=== PATIENT | female | born 1950 | race Caucasian/White ===

== ENCOUNTER 2021-06-04 06:10 | Observation (INO) | payer MEDICARE ==
[2021-06-04] MEDS ORDERED: Sodium Chloride 0.9% 1000 ML 1,000 ML IV STA ×2 (06:41→08:11)
--- NOTE | 2021-06-04 06:48 | ERPHSYRPT ---
- History of Present Illness Time Seen by Provider: 06/04/21 06:20 Source: patient Exam Limitations: no limitations Physician History: Patient is a 70-year-old female presents to our ED via EMS for evaluation of generalized weakness diarrhea. Patient states she awoke this morning. Patient had some abdominal cramping. Patient had ongoing diarrhea. Abdominal cramping has since resolved. Patient slipped on her stool and fell. No syncope. No BHT or LOC. No associated chest pain or shortness of breath. No numbness tingling or weakness. The fall was not associated with any neuro or cardiovascular symptomology. Patient was on the floor for approximately 25 minutes. Patient states she feels too weak to get up. Patient denies injuries related to her fall. Cervical spine cleared clinically. She has no pain at this time. Patient is concerned with her weakness and diarrhea. Symptoms are mild to moderate in intensity. No specific worsening or improving factors. Patient voices no other complaints or concerns at this time. Timing/Duration: today Severity: moderate Modifying Factors: Improves With: nothing Associated Symptoms: nausea, abdominal pain (Abdominal cramping. However this has resolved since diarrhea occurred.), No vomiting, No shortness of breath, No cough, No chest pain, No fever, No syncope, No seizure Allergies/Adverse Reactions: Penicillins Allergy (Verified 04/24/21 13:42) Swelling of Tongue and Lips Home Medications: Clopidogrel Bisulfate 75 mg [PLAVIX 75 MG Tablet] 75 mg PO DAILY 02/12/12 [History] Desvenlafaxine Succinate [Pristiq] 50 mg PO DAILY 02/12/12 [History] Furosemide 40 mg [Lasix 40 MG] 40 mg PO DAILY 02/12/12 [History] Magnesium Oxide [Magnesium] 400 mg PO DAILY 02/12/12 [History] Omeprazole 40 mg PO DAILY 02/12/12 [History] Potassium Chloride 10 Meq Tab* [Klor Con 10 MEQ] 10 meq PO DAILY 02/12/12 [History] lisinopriL [Lisinopril] 10 mg PO DAILY 02/12/12 [History] nadoloL [Nadolol] 40 mg PO DAILY 02/12/12 [History] Requip 1 mg PO DAILY 04/01/12 [History] Hx Tetanus, Diphtheria Vaccination/Date Given: Yes Hx Influenza Vaccination/Date Given: Yes Hx Pneumococcal Vaccination/Date Given: Yes - Review of Systems Constitutional: No Symptoms, No Fever, No Chills Eyes: No Symptoms Ears, Nose, & Throat: No Symptoms Respiratory: No Symptoms, No Cough, No Dyspnea Cardiac: No Symptoms, No Chest Pain, No Edema, No Syncope Abdominal/Gastrointestinal: No Symptoms, No Abdominal Pain, No Nausea, No Vomiting, No Diarrhea Genitourinary Symptoms: No Symptoms, No Dysuria Musculoskeletal: No Symptoms, No Back Pain, No Neck Pain Skin: No Symptoms, No Rash Neurological: No Symptoms, No Dizziness, No Focal Weakness, No Sensory Changes Psychological: No Symptoms Endocrine: No Symptoms Hematologic/Lymphatic: No Symptoms Immunological/Allergic: No Symptoms All Other Systems: Reviewed and Negative - Past Medical History Pertinent Past Medical History: Yes Neurological History: Migraines ENT History: No Pertinent History Cardiac History: Coronary Artery Disease, Hypertension Respiratory History: No Pertinent History Endocrine Medical History: No Pertinent History Musculoskeletal History: No Pertinent History GI Medical History: GERD History: Renal Disease Psycho-Social History: No Pertinent History Female Reproductive Disorders: No Pertinent History Other Medical History: UTI,RLS - Past Surgical History Past Surgical History: Yes Neuro Surgical History: No Pertinent History Cardiac: CABG Respiratory: No Pertinent History Gastrointestinal: No Pertinent History Genitourinary: No Pertinent History Musculoskeletal: No Pertinent History Female Surgical History: No Pertinent History Other Surgical History: colonoscopy - Social History Smoking Status: Never smoker Exposure to second hand smoke: No Drug Use: none Patient Lives Alone: Yes - Nursing Vital Signs Nursing Vital Signs: Initial Vital Signs Temperature 96.0 F 06/04/21 06:12 Pulse Rate 56 L 06/04/21 06:12 Respiratory Rate 18 06/04/21 06:12 Blood Pressure 77/48 06/04/21 06:12 O2 Sat by Pulse Oximetry 94 L 06/04/21 06:12 Pain Scale Pain Intensity 0 - Physical Exam General Appearance: no apparent distress, alert, other (Follow odor due to stool incontinence. Patient has stool on her arms close and legs.) Eye Exam: PERRL/EOMI, eyes nml inspection Ears, Nose, Throat Exam: normal ENT inspection, TMs normal, pharynx normal, moist mucous membranes Neck Exam: normal inspection, non-tender, supple, full range of motion Respiratory Exam: normal breath sounds, lungs clear, airway intact, No respiratory distress Cardiovascular Exam: regular rate/rhythm, normal heart sounds, normal peripheral pulses Gastrointestinal/Abdomen Exam: soft, normal bowel sounds, No tenderness, No mass Back Exam: normal inspection, normal range of motion, No CVA tenderness, No vertebral tenderness Extremity Exam: normal inspection, normal range of motion, pelvis stable Neurologic Exam: alert, oriented x 3, cooperative, normal mood/affect, sensation nml, No motor deficits Skin Exam: normal color, warm, dry, No rash Lymphatic Exam: No adenopathy SpO2 Interpretation: normal SpO2: 94 O2 Delivery: Room Air - Course Nursing assessment & vital signs reviewed: Yes Ordered Tests: Active Orders 24 hr Category Date Time Status Rug Touch Up Painter STAT Care 06/04/21 06:42 Active EKG-ER Only STAT Care 06/04/21 06:48 Active IV Insertion STAT Care 06/04/21 06:41 Active Pulse Oximetry (ED) STAT Care 06/04/21 06:41 Active CBC W DIFF Stat Lab 06/04/21 06:41 Ordered CK-Creatinine Phosphokinase Stat Lab 06/04/21 06:41 Ordered CMP Stat Lab 06/04/21 06:41 Ordered TROPONIN Q3H Lab 06/04/21 07:00 Ordered TROPONIN Q3H Lab 06/04/21 10:00 Ordered TROPONIN Q3H Lab 06/04/21 13:00 Ordered TROPONIN Q3H Lab 06/04/21 16:00 Ordered TROPONIN Q3H Lab 06/04/21 19:00 Ordered UA W/RFX UR CULTURE Stat Lab 06/04/21 06:42 Ordered Medication Summary Generic Name Dose Route Start Last Admin Trade Name Freq PRN Reason Stop Dose Admin Sodium Chloride 1,000 mls @ 999 mls/hr 06/04/21 06:41 Sodium Chloride 0.9% 1000 Ml IV 06/04/21 07:41 .Q1H1M STA - Progress Progress Note: Work-up pending. Patient endorsed to at approximately 7am. Dr. Floyd will review work-up and make final disposition. 06/04/21 07:03 - Departure Departure Disposition: Home Clinical Impression: Fall, Generalized weakness, Stool incontinence Condition: Stable Critical Care Time: No Referrals: KAYLEIGH SALDANA MD [Primary Care Provider] - Follow up/PCP as directed
[2021-06-04] MEDS ORDERED: Sodium Chloride 0.9% 1000 ML 1,000 ML ONE ×2 (07:12→09:00)
[2021-06-04 07:35] LABS: Hematocrit 42.4 % (35-47); Hemoglobin 13.4 gm/dl (12.0-16.0); Mean Corpuscular Hemoglobin 29.4 pg (26-32); Mean Corpuscular Hgb Concent. 31.6 g/dl (32-36); Platelet Count 271 K/mm3 (150-450); Red Blood Count 4.56 M/mm3 (4.1-5.4); Red Cell Distribution Width 14.6 % (11.5-14.0); White Blood Count 17.1 K/mm3 (4.0-10.5)
[2021-06-04 07:40] LABS: ALBUMIN 4.5 g/dL (3.5-5.0); ANION GAP 16.2 MEQ/L (5-15); BILIRUBIN,TOTAL 0.9 mg/dL (0.2-1.3); Calcium 10.5 mg/dL (8.4-10.2); Creatinine 1 1.72 mg/dL (0.52-1.04); EST GLOMERULAR FILTRATION RATE 31.2 ML/MIN; Potassium 4.6 mmol/L (3.5-5.1); Total Protein 8.1 g/dL (6.3-8.2)
[2021-06-04 08:11] LABS: Lymphocytes 10 % (24-44); Monocyte 4 % (0.0-12.0); Neutrophils 86 % (36.0-66.0); Platelet Estimate NORMAL (NORMAL); Total Cells Counted 100
[2021-06-04 09:00] LABS: Appearance CLOUDY (CLEAR); Bacteria RARE /HPF (NEGATIVE); Bilirubin NEGATIVE (NEGATIVE); Blood NEGATIVE Ery/ul (0-5); Epithelial Cells RARE /HPF (FEW); Glucose NEGATIVE (NEGATIVE); Ketones NEGATIVE (NEGATIVE); Leukocyte Esterase NEGATIVE (NEGATIVE); Mucus SLIGHT /HPF (NEGATIVE); Nitrite NEGATIVE (NEGATIVE); Protein,Urine Dip 100 (Negative); Specific Gravity 1.011 (1.005-1.025); Urobilinogen 2 mg/dL (0-1)
--- NOTE | 2021-06-04 09:20 | XRAY ---
Indication: Vomiting and diarrhea. Multiple contiguous axial images obtained through the abdomen and pelvis without contrast. Comparison: None Lung bases demonstrates minimal dependent atelectasis. No infiltrate or effusion. Heart not enlarged. Noncontrasted stomach and bowel loops appear nonobstructed. Normal appendix. Mild fluid distended distal small bowel loops and right hemicolon with fluid leveling either ileus versus enterocolitis. Distal transverse and descending colon demonstrates mild circumferential wall thickening with mild pericolonic stranding favoring colitis. No free fluid/air. Cirrhotic appearing liver. 8 mm gallstone. Remaining liver, gallbladder, pancreas, spleen, adrenal glands, kidneys, ureters, bladder, and uterus are unremarkable for noncontrast exam. Moderate scattered aortoiliac calcifications without AAA. Osseous structures intact with osteopenia and moderate degenerative changes throughout the thoracolumbar spine. Incidental T9-L1 Schmorl nodes. Impression: 1. Fluid distended distal small bowel loops and right hemicolon with fluid leveling, ileus versus enterocolitis. 2. Mild hemicolon colitis without complications. 3. Incidental cirrhotic liver, subcentimeter gallstone, and chronic bony findings.
[2021-06-04] MEDS ORDERED: Zofran 4 MG/2 ML VIAL IV PRN (11:06)
[2021-06-04] MEDS ORDERED: Levofloxacin 500MG/100ML D5W 500 MG/100 ML BAG IV STA (11:27)
[2021-06-04] MEDS ORDERED: Levofloxacin 500MG/100ML D5W 500 MG/100 ML BAG IV ONE (11:32)
[2021-06-04] MEDS: Sodium Chloride 0.9% 1000 ML 1,000 ML IV SCH ×2 (11:33→20:29)
[2021-06-04 12:43] LABS: INFLUENZA A NEGATIVE (NEGATIVE); INFLUENZA B NEGATIVE (NEGATIVE); RESPIRATORY SYNCTIAL VIRUS NEGATIVE (Negative); SARS-CoV-2 Xpert Express POSITIVE (NEGATIVE)
[2021-06-04] MEDS ORDERED: PROTONIX 40 MG IV IV SCH (16:00)
[2021-06-04] MEDS ORDERED: Ativan 2 MG/1 ML VIAL IV PRN (17:05)
[2021-06-04] MEDS ORDERED: IMODIUM 2 MG PO PRN (17:07)
[2021-06-04] MEDS ORDERED: MEDICATION INTERVENTION PO SCH (17:30)
[2021-06-04] MEDS: PRISTIQ ER PO SCH (18:05)
[2021-06-04] MEDS: Wellbutrin XL 150 MG PO SCH (18:05)
[2021-06-04] MEDS: PROZAC 10 MG PO SCH (18:06)
[2021-06-04] MEDS: Risperdal 1 MG PO SCH (18:07)
[2021-06-04] MEDS: PLAVIX 75 MG Tablet PO SCH (18:12)
[2021-06-04] MEDS: Zestril 10 MG PO SCH (18:13)
[2021-06-04] MEDS: ZOCOR 20MG PO SCH (18:13)
[2021-06-04] MEDS: MAG-OX 400 PO SCH (18:14)
[2021-06-04] MEDS: Klor Con 10 MEQ PO SCH (18:14)
[2021-06-04] MEDS: Heparin 5000 UNITS/0.5 ML (HIGH RISK MED) SQ SCH (21:34)
[2021-06-04] MEDS: ZYLOPRIM 100 MG PO SCH (21:35)
[2021-06-05] MEDS: Ativan 1 MG PO PRN (02:52)
[2021-06-05] MEDS: Sodium Chloride 0.9% 1000 ML 1,000 ML IV SCH ×2 (05:02→18:38)
[2021-06-05 05:53] LABS: Absolute Neutrophil Ct (ANC) 2.85 (1.4-6.9); Basophil (Absolute #) 0.02 (0-0.4); Eosinophil % 2.1 % (0.00-5.0); Eosinophil (Absolute #) 0.11 (0-0.5); Hematocrit 29.1 % (35-47); Hemoglobin 9.1 gm/dl (12.0-16.0); Lymphocyte (Absolute #) 1.69 (1.0-4.6); Lymphocytes % 32.6 % (24.0-44.0); Mean Cell Volume 94.8 fl (78-100); Mean Corpuscular Hemoglobin 29.6 pg (26-32); Mean Corpuscular Hgb Concent. 31.3 g/dl (32-36); Mean Platelet Volume 11.5 fl (7.5-11.0); Monocyte (Absolute #) 0.51 (0.0-1.3); Monocytes % 9.8 % (0.0-12.0); Neutrophil % 55.1 % (36.0-66.0); Platelet Count 111 K/mm3 (150-450); Red Blood Count 3.07 M/mm3 (4.1-5.4); Red Cell Distribution Width 14.7 % (11.5-14.0); White Blood Count 5.2 K/mm3 (4.0-10.5)
[2021-06-05 06:46] LABS: ALBUMIN 2.8 g/dL (3.5-5.0); ANION GAP 9.4 MEQ/L (5-15); BILIRUBIN,TOTAL 0.5 mg/dL (0.2-1.3); Calcium 8.6 mg/dL (8.4-10.2); Creatinine 1 1.23 mg/dL (0.52-1.04); EST GLOMERULAR FILTRATION RATE 45.9 ML/MIN; Total Protein 5.4 g/dL (6.3-8.2)
[2021-06-05] MEDS: Klor Con 10 MEQ PO SCH (09:47)
[2021-06-05] MEDS: PLAVIX 75 MG Tablet PO SCH (09:47)
[2021-06-05] MEDS: ZOCOR 20MG PO SCH (09:47)
[2021-06-05] MEDS: Protonix 40MG Tablet PO SCH (09:48)
[2021-06-05] MEDS: Levofloxacin 250MG Tablet PO SCH (09:48)
[2021-06-05] MEDS: PROZAC 10 MG PO SCH (09:48)
[2021-06-05] MEDS: MAG-OX 400 PO SCH (09:48)
[2021-06-05] MEDS: PRISTIQ ER PO SCH (09:49)
[2021-06-05] MEDS ORDERED: NON-FORMULARY ITEM (Rosuvastatin Calcium [Rosuvastatin Calcium] 20 MG Tablet) PO SCH (10:00)
[2021-06-05] MEDS ORDERED: NON-FORMULARY ITEM (Risperidone [Risperdal] 0.5 MG Tablet) PO SCH (10:00)
[2021-06-05] MEDS ORDERED: NON-FORMULARY ITEM (Omeprazole [Omeprazole] 40 MG Capsule.Dr) PO SCH (10:00)
[2021-06-05] MEDS ORDERED: NADOLOL 40 MG PO SCH (10:00)
[2021-06-05] MEDS ORDERED: MAGNESIUM OXIDE 400 MG PO SCH (10:00)
--- NOTE | 2021-06-05 10:04 | HP ---
CHIEF COMPLAINT: Abdominal pain, profuse diarrhea, confusion, hurting all over. HISTORY OF PRESENT ILLNESS: The patient is a 70-year-old white female who I think lives with her ex-. She had several days of feeling bad. She had severe diarrhea, severe epigastric and left lower quadrant pain. She said she has never had spells quite like that before. She came into the emergency room and tested positive for COVID and a CT that showed diverticulitis and her white count was elevated to 15,000. She had abdominal cramping that did wake her up. She does not know of anyone she has been with who has COVID. She does not get out much, she stated. By the time she got to her room the pain had gone away. However, she had a large amount of diarrhea which probably relieved the pressure. MEDICATIONS: Plavix 75 q.d., Pristiq 50 q.d., furosemide 40 q.d., Mag-Ox 400 q.d., Prilosec 40 q.d., KCL 20 q.d., lisinopril 10 q.d., Nadolol 40 q.d., Requip 1 mg q.d. Question about whether the patient takes Risperdal for hallucinations also. It is not on the list but the son called that in. Allopurinol 100 b.i.d., Wellbutrin 150 b.i.d., Prozac 10 q.d., omeprazole 20 q.d., risperidone 0.25 q.d., rosuvastatin 20 q.d. I think we will discontinue the Nadolol due to her bradycardia that occurred last night. ALLERGIES: PENICILLIN. PAST MEDICAL HISTORY: Migraines. The patient has visual and auditory hallucinations she states been going on for many years. She usually just tells them to go away. Apparently she has not seen a psychiatrist secondary to COVID. The son said it is getting worse. She freely talked about it and said it has been there for many years and she can control it by telling herself they are not there. Probably she has well controlled schizophrenia. PAST SURGICAL HISTORY: Pacemaker. Coronary artery bypass some time ago. She had a colonoscope within ten years. REVIEW OF SYSTEMS: HEENT: No problems hearing or seeing. CHEST: No shortness of breath. No cough. Nonsmoker. CVS: No exertional chest pain or palpitations. ABDOMEN: Pain is epigastric and left lower quadrant. Diarrhea which was profuse in the emergency room which seemed to relieve the pain. No history of diverticulitis. ENDOCRINE: No problems with diabetes or hypertension. : CT scan showed some cirrhotic changes of the liver. Denies drinking. Will look into that. SOCIAL HISTORY: She states she has never smoked. PHYSICAL EXAMINATION: The patient is alert, orientated and in no distress. She is very pleasant this afternoon when I saw her. VITAL SIGNS: Temperature 96F, pulse 66, respirations 18, blood pressure quite low at 80/70 and it did come up. O2 saturation was 94% on room air. Pain intensity was 0. GENERAL: The patient is alert, orientated in no severe distress. HEENT: Pupils equal and reactive to light. NECK: Supple without adenopathy. CHEST: Clear. CVS: No murmurs or gallops. ABDOMEN: Normal bowel sounds. Minimal tenderness now. BACK: No tenderness at all. EXTREMITIES: Legs no edema, moves all extremities fine. She states she ambulates okay. LAB DATA AND TESTS: Her x-rays CT showed fluid-distended distal small bowel loops, right hemicolon with fluid leveling, ileus versus enterocolitis, mild hemicolon colitis without complications, incidental cirrhotic liver, subcentimeter gallstone and chronic bony findings. The distal and descending colon had mild circumferential wall thickening with mild pericolonic stranding favoring colitis. Chest x-ray heart not enlarged, minimal atelectasis. White count was 15, hemoglobin was normal. EKG was okay. IMPRESSION: 1) The patient had some kind of acute colitis. It could related to her COVID. It could definitely be colitis with x-ray findings and elevated white count. 2) Apparently she has schizophrenia. I do not know if she takes Risperdal now or not but it came up so I assumes she does. From what she states, she is able to control it by telling the images to go away and she has had it for a long time. Her son left a note saying it seemed somewhat better. 3) She had a positive history for coronary artery disease and a bypass. Nonsmoker. 4) She has COVID that seems to be mild. PLAN: The patient will be treated with some Levaquin since her white count was elevated. IV fluids will be gradually increased. She has no severe COVID symptoms so will observe that and not use any specific medications. I think she had the vaccine. For her schizophrenia she is trying to see her psychiatrist. She does take risperidone 0.25 q.d. for that and that seems to be working fairly well. I think we will discontinue the Nadolol due to her bradycardia that occurred last night.
[2021-06-05] MEDS: Zestril 10 MG PO SCH (10:08)
[2021-06-05] MEDS: Wellbutrin XL 150 MG PO SCH (10:08)
[2021-06-05] MEDS: Risperdal 1 MG PO SCH (10:08)
[2021-06-05] MEDS: ZYLOPRIM 100 MG PO SCH ×2 (10:08→21:21)
[2021-06-05] MEDS: Heparin 5000 UNITS/0.5 ML (HIGH RISK MED) SQ SCH ×2 (10:28→21:20)
--- NOTE | 2021-06-05 10:30 | PROG NOTE ---
DATE: 06/05/2021 MEDICAL PROBLEMS: 1) COVID. 2) Schizophrenia. 3) Hypotension. HISTORY: The patient is improved. She is not on oxygen. Her diarrhea stopped and she feels better. Schizophrenia controlled. The patient states she is not having hallucinations now. She usually controls them by ignoring them. It is a chronic problem. She should follow up with her psychiatrist in a few weeks if possible. Her home doctor may be able to increase her Risperdal. The patient did have some hypotension the last night and did get a fluid bolus. She has some bradycardia at times so perhaps will discontinue her Nadolol. PHYSICAL EXAMINATION: ABDOMEN: Soft. Normal bowel sounds. CHEST: Clear. IMPRESSION: Overall improved. PLAN: Increase diet. Discontinue Nadolol. Home tomorrow hopefully.
[2021-06-06] MEDS: Sodium Chloride 0.9% 1000 ML 1,000 ML IV SCH ×2 (04:27→14:08)
[2021-06-06 05:49] LABS: Hematocrit 30.4 % (35-47); Hemoglobin 9.5 gm/dl (12.0-16.0); Mean Corpuscular Hemoglobin 29.7 pg (26-32); Mean Corpuscular Hgb Concent. 31.3 g/dl (32-36); Mean Platelet Volume 11.6 fl (7.5-11.0); Red Cell Distribution Width 14.7 % (11.5-14.0); White Blood Count 4.3 K/mm3 (4.0-10.5)
[2021-06-06 07:09] LABS: Platelet Count 98 K/mm3 (150-450)
[2021-06-06] MEDS: Klor Con 10 MEQ PO SCH (09:04)
[2021-06-06] MEDS: ZOCOR 20MG PO SCH (09:04)
[2021-06-06] MEDS: Zestril 10 MG PO SCH (09:05)
[2021-06-06] MEDS: Wellbutrin XL 150 MG PO SCH (09:05)
[2021-06-06] MEDS: ZYLOPRIM 100 MG PO SCH ×2 (09:05→21:44)
[2021-06-06] MEDS: Heparin 5000 UNITS/0.5 ML (HIGH RISK MED) SQ SCH ×2 (09:05→21:44)
[2021-06-06] MEDS: Levofloxacin 250MG Tablet PO SCH (09:05)
[2021-06-06] MEDS: Protonix 40MG Tablet PO SCH (09:05)
[2021-06-06] MEDS: PRISTIQ ER PO SCH (09:05)
[2021-06-06] MEDS: PLAVIX 75 MG Tablet PO SCH (09:05)
[2021-06-06] MEDS: MAG-OX 400 PO SCH (09:05)
[2021-06-06] MEDS: PROZAC 10 MG PO SCH (09:05)
[2021-06-06 09:09] LABS: HBsAg Screen Negative (Negative); Hep A Ab, IgM Negative (Negative); Hep B Core Ab, IgM Negative (Negative)
[2021-06-06] MEDS: Risperdal 1 MG PO SCH (09:19)
[2021-06-06 13:30] LABS: Hep C Virus Ab <0.1 s/co ratio (0.0-0.9)
[2021-06-07] MEDS: Sodium Chloride 0.9% 1000 ML 1,000 ML IV SCH ×2 (00:02→09:38)
[2021-06-07 06:18] LABS: Hematocrit 29.7 % (35-47); Hemoglobin 9.4 gm/dl (12.0-16.0); Mean Corpuscular Hemoglobin 29.7 pg (26-32); Mean Corpuscular Hgb Concent. 31.6 g/dl (32-36); Mean Platelet Volume 11.2 fl (7.5-11.0); Platelet Count 94 K/mm3 (150-450); Red Blood Count 3.16 M/mm3 (4.1-5.4); Red Cell Distribution Width 14.7 % (11.5-14.0); White Blood Count 4.1 K/mm3 (4.0-10.5)
[2021-06-07] MEDS: Klor Con 10 MEQ PO SCH (09:24)
[2021-06-07] MEDS: Heparin 5000 UNITS/0.5 ML (HIGH RISK MED) SQ SCH ×2 (09:24→22:34)
[2021-06-07] MEDS: PLAVIX 75 MG Tablet PO SCH (09:25)
[2021-06-07] MEDS: Levofloxacin 250MG Tablet PO SCH (09:25)
[2021-06-07] MEDS: Protonix 40MG Tablet PO SCH (09:26)
[2021-06-07] MEDS: PROZAC 10 MG PO SCH (09:26)
[2021-06-07] MEDS: PRISTIQ ER PO SCH (09:26)
[2021-06-07] MEDS: Wellbutrin XL 150 MG PO SCH (09:27)
[2021-06-07] MEDS: ZOCOR 20MG PO SCH (09:27)
[2021-06-07] MEDS: Zestril 10 MG PO SCH (09:27)
[2021-06-07] MEDS: Risperdal 1 MG PO SCH (09:27)
[2021-06-07] MEDS: ZYLOPRIM 100 MG PO SCH ×2 (09:28→22:34)
[2021-06-07] MEDS: MAG-OX 400 PO SCH (09:29)
[2021-06-07 15:39] LABS: Slide Review YES
[2021-06-08] MEDS ORDERED: TYLENOL 325 MG ONE (03:11)
[2021-06-08] MEDS: TYLENOL 325 MG PO PRN (03:14)
[2021-06-08] MEDS: Sodium Chloride 0.9% 1000 ML 1,000 ML IV SCH (03:48)
[2021-06-08 06:44] LABS: Hematocrit 27.9 % (35-47); Hemoglobin 8.9 gm/dl (12.0-16.0); Mean Cell Volume 93.3 fl (78-100); Mean Corpuscular Hemoglobin 29.8 pg (26-32); Mean Corpuscular Hgb Concent. 31.9 g/dl (32-36); Mean Platelet Volume 10.3 fl (7.5-11.0); Platelet Count 99 K/mm3 (150-450); Red Blood Count 2.99 M/mm3 (4.1-5.4); Red Cell Distribution Width 14.7 % (11.5-14.0); White Blood Count 4.1 K/mm3 (4.0-10.5)
[2021-06-08] MEDS: Klor Con 10 MEQ PO SCH (09:49)
[2021-06-08] MEDS: Heparin 5000 UNITS/0.5 ML (HIGH RISK MED) SQ SCH ×2 (09:49→21:48)
[2021-06-08] MEDS: PRISTIQ ER PO SCH (09:50)
[2021-06-08] MEDS: Levofloxacin 250MG Tablet PO SCH (09:50)
[2021-06-08] MEDS: Protonix 40MG Tablet PO SCH (09:50)
[2021-06-08] MEDS: PLAVIX 75 MG Tablet PO SCH (09:50)
[2021-06-08] MEDS: MAG-OX 400 PO SCH (09:50)
[2021-06-08] MEDS: Risperdal 1 MG PO SCH (09:51)
[2021-06-08] MEDS: PROZAC 10 MG PO SCH (09:51)
[2021-06-08] MEDS: ZYLOPRIM 100 MG PO SCH ×2 (09:51→21:49)
[2021-06-08] MEDS: Wellbutrin XL 150 MG PO SCH (09:51)
[2021-06-08] MEDS: Zestril 10 MG PO SCH (09:51)
[2021-06-08] MEDS: ZOCOR 20MG PO SCH (09:51)
[2021-06-08 12:57] LABS: Slide Review YES
[2021-06-08] MEDS: FEOSOL 325 MG PO SCH (14:09)
[2021-06-09] MEDS: Protonix 40MG Tablet PO SCH (08:58)
[2021-06-09] MEDS: Klor Con 10 MEQ PO SCH (08:58)
[2021-06-09] MEDS: FEOSOL 325 MG PO SCH (08:58)
[2021-06-09] MEDS: ZOCOR 20MG PO SCH (08:58)
[2021-06-09] MEDS: Levofloxacin 250MG Tablet PO SCH (08:59)
[2021-06-09] MEDS: PLAVIX 75 MG Tablet PO SCH (08:59)
[2021-06-09] MEDS: PRISTIQ ER PO SCH (08:59)
[2021-06-09] MEDS: Wellbutrin XL 150 MG PO SCH (08:59)
[2021-06-09] MEDS: ZYLOPRIM 100 MG PO SCH ×2 (08:59→21:57)
[2021-06-09] MEDS: PROZAC 10 MG PO SCH (08:59)
[2021-06-09] MEDS: Zestril 10 MG PO SCH (08:59)
[2021-06-09] MEDS: MAG-OX 400 PO SCH (08:59)
[2021-06-09] MEDS: Risperdal 1 MG PO SCH (09:00)
[2021-06-09] MEDS: Heparin 5000 UNITS/0.5 ML (HIGH RISK MED) SQ SCH ×2 (09:00→21:57)
[2021-06-09 09:10] LABS: Absolute Neutrophil Ct (ANC) 2.81 (1.4-6.9); Basophil (Absolute #) 0.03 (0-0.4); Eosinophil % 2.5 % (0.00-5.0); Eosinophil (Absolute #) 0.12 (0-0.5); Hematocrit 28.9 % (35-47); Hemoglobin 9.2 gm/dl (12.0-16.0); Lymphocyte (Absolute #) 1.49 (1.0-4.6); Lymphocytes % 31.5 % (24.0-44.0); Mean Cell Volume 93.8 fl (78-100); Mean Corpuscular Hemoglobin 29.9 pg (26-32); Mean Corpuscular Hgb Concent. 31.8 g/dl (32-36); Mean Platelet Volume 10.3 fl (7.5-11.0); Monocyte (Absolute #) 0.28 (0.0-1.3); Monocytes % 5.9 % (0.0-12.0); Neutrophil % 59.5 % (36.0-66.0); Platelet Count 101 K/mm3 (150-450); Red Blood Count 3.08 M/mm3 (4.1-5.4); Red Cell Distribution Width 14.9 % (11.5-14.0); White Blood Count 4.7 K/mm3 (4.0-10.5)
[2021-06-09] MEDS: TYLENOL 325 MG PO PRN (09:12)
[2021-06-09 09:19] LABS: ALBUMIN 3.1 g/dL (3.5-5.0); ALKALINE PHOSPHATASE 79 U/L (38-126); ANION GAP 8.5 MEQ/L (5-15); BLOOD UREA NITROGEN 9 mg/dL (7-17); CHLORIDE 111 mmol/L (98-107); Carbon Dioxide 25 mmol/L (22-30); Creatinine 1 0.85 mg/dL (0.52-1.04); EST GLOMERULAR FILTRATION RATE > 60.0 ML/MIN; Glucose 87 mg/dL (74-106); Potassium 3.5 mmol/L (3.5-5.1); SGOT/AST 42 U/L (14-36); SGPT/ALT 22 U/L (0-35); SODIUM 141 mmol/L (137-145); Total Protein 5.8 g/dL (6.3-8.2)
--- NOTE | 2021-06-09 14:08 | PROG NOTE ---
DATE: 06/08/2021 CHIEF COMPLAINT: COVID, schizophrenia. HISTORY: The patient has been here for four days. She has no cough, fever or chills. The diarrhea went away. She has no abdominal pain. She is eating well. White count is down. We did also increase her Risperdal which is 0.25 to 0.5 and she states she is not really having any vivid hallucinations. She states she has had schizophrenia for many years and she has gotten so she knows hallucinations from the nonhallucinations, and will not pay attention to things she knows are obviously hallucinations. She has been calm, pleasant and polite. She wants to get home, kind of understands the ins and outs. I told her the family wanted to look at placement. I told her that quite frankly it is very hard to get placement for MARVIN second of all from mental health problems. She said she knew that. PHYSICAL EXAMINATION: CHEST: Clear. CVS: Heart sounds normal. IMPRESSION: The patient is much improved from the COVID. Her white count today is 4.1, hemoglobin low at 8.1 probably secondary to iron deficiency, small microcytic. Her strength came back. PLAN: I think we can heparin lock her, some iron pills. I did increase her Risperdal to 1 mg q.d. She presently thinks she has a baby at home but then she realizes that it is not true so mental health smiley she is not in super bad shape. I feel she will do well at home. I do not totally know what happened, I do know she was admitted to the [facility] apparently a month ago as hallucinations got bad.
--- NOTE | 2021-06-09 14:57 | XRAY ---
Indication: [facility] placement. Positive Covid 19. Comparison: October 13, 2017. Portable apical lordotic chest less inflated and remains clear. Heart not enlarged again with CABG. Bony thorax intact again with mild osteopenia and degenerative changes. Impression: Continued nonacute chest with chronic features.
[2021-06-10] MEDS: Ativan 1 MG PO PRN (08:03)
[2021-06-10] MEDS: FEOSOL 325 MG PO SCH (08:03)
[2021-06-10] MEDS: ZOCOR 20MG PO SCH (08:03)
[2021-06-10] MEDS: Heparin 5000 UNITS/0.5 ML (HIGH RISK MED) SQ SCH ×2 (08:03→21:25)
[2021-06-10] MEDS: PLAVIX 75 MG Tablet PO SCH (08:03)
[2021-06-10] MEDS: Klor Con 10 MEQ PO SCH (08:03)
[2021-06-10] MEDS: Zestril 10 MG PO SCH (08:03)
[2021-06-10] MEDS: Wellbutrin XL 150 MG PO SCH (08:04)
[2021-06-10] MEDS: Protonix 40MG Tablet PO SCH (08:04)
[2021-06-10] MEDS: ZYLOPRIM 100 MG PO SCH ×2 (08:04→21:25)
[2021-06-10] MEDS: PRISTIQ ER PO SCH (08:04)
[2021-06-10] MEDS: Levofloxacin 250MG Tablet PO SCH (08:04)
[2021-06-10] MEDS: Risperdal 1 MG PO SCH (08:04)
[2021-06-10] MEDS: PROZAC 10 MG PO SCH (08:04)
[2021-06-10] MEDS: MAG-OX 400 PO SCH (08:04)
--- NOTE | 2021-06-10 12:56 | PCM.NOTE ---
Date and Time: 06/10/21 1254 Subjective Assessment: doing better. - Review of Systems Constitutional: No Fever, No Chills Eyes: No Symptoms Ears, Nose, & Throat: No Symptoms Respiratory: No Cough, No Short Of Breath Cardiac: No Chest Pain, No Edema, No Syncope Abdominal/Gastrointestinal: No Abdominal Pain, No Nausea, No Vomiting, No Diarrhea Genitourinary Symptoms: No Dysuria Musculoskeletal: No Back Pain, No Neck Pain Skin: No Rash Neurological: No Dizziness, No Focal Weakness, No Sensory Changes Psychological: No Symptoms Endocrine: No Symptoms Hematologic/Lymphatic: No Symptoms Immunological/Allergic: No Symptoms Objective Exam General Appearance: no apparent distress, alert Neurologic Exam: alert, oriented x 3, cooperative, normal mood/affect, nml cerebellar function, sensation nml, No motor deficits Skin Exam: normal color, warm, dry Eye Exam: PERRL, EOMI, eyes nml inspection Ears, Nose, Throat Exam: normal ENT inspection, pharynx normal, moist mucous membranes Neck Exam: normal inspection, non-tender, supple, full range of motion Respiratory Exam: normal breath sounds, lungs clear, No respiratory distress Cardiovascular Exam: regular rate/rhythm, normal heart sounds Gastrointestinal/Abdomen Exam: soft, No tenderness, No mass Extremity Exam: normal inspection, normal range of motion Back Exam: normal inspection, normal range of motion, No CVA tenderness, No vertebral tenderness Pelvic Exam: deferred Rectal Exam: deferred OBJECTIVE DATA Vital Signs: Vital Signs - 24 hr Temp Pulse Resp BP Pulse Ox 06/10/21 12:00 82 06/10/21 11:57 17 06/10/21 10:00 86 16 93 L 06/10/21 07:57 16 06/10/21 06:39 98.1 F 89 16 128/50 94 L 06/10/21 05:34 87 18 95 06/10/21 05:21 16 06/10/21 04:00 96.8 F 99 H 16 152/7 96 06/10/21 02:00 77 16 92 L 06/10/21 00:00 16 06/09/21 23:53 96.4 F 90 16 151/74 93 L 06/09/21 22:00 21 06/09/21 21:47 73 21 93 L 06/09/21 20:00 16 06/09/21 19:51 96.4 F 83 16 134/53 97 06/09/21 18:00 85 16 97 06/09/21 17:50 18 06/09/21 16:00 97.5 F 77 18 109/49 97 06/09/21 14:00 71 16 97 Pain Assessment - Last Documented Pain Intensity 0 Pain Scale Used 0-10 Pain Scale Intake and Output: Intake & Output 06/08/21 06/09/21 06/10/21 06/11/21 11:59 11:59 11:59 11:59 Intake Total 3459 1872 660 120 Balance 3459 1872 660 120 Radiology Exams: Radiology Procedures Category Date Time Status CHEST 1 VIEW (PORTABLE) Urgent Exams 06/09/21 14:21 Completed Multi-Disciplinary Progress Notes: Multi-Disciplinary Progress Notes 06/10/21 09:13 Case Management Note by Belén Kilgore PHONED [facility] WITH SIGNATURE, THEY BEGAN PRE-CERTIFICATION YESTERDAY AFTERNOON, LONG INSURANCE ACCEPTS, THEY WILL ACCEPT PATIENT DEENA. Initialized on 06/10/21 09:13 - END OF NOTE 06/09/21 16:20 Physical Therapy Note by [email or web address] PT. REPORTS FEELING BETTER. ORIENTED TO SELF AND MONTH. THOUGHT SHE WAS IN THE RETIREMENT AND THAT THE YEAR WAS 2002. REPORTS C/O PN; NO LOOSE STOOLS. PT. REPORTED SHE DID NOT NEED TO USE RESTROOM WHEN ASKED. PT. AGREEABLE TO P.T. IN BED UPON P.T. ARRIVAL TO ROOM. O2 SATS 94%+ ON RA. PT. PERFORMED SUPINE LE EX'S OF QUAD SETS, SLRS, HEEL SLIDES, SUPINE HIP ABD, WELL SEATED LAQS AND MARCHES. TOLERATED EXERCISES WELL WITHOUT DYSPNEA. FOLLOWED CUES WELL. SUPINE TO SIT PERFORMED SBA-MOD I W/ HOB ELEVATED. SIT TO STAND SBA-MOD I. NO C/O DIZZINESS W/ POSITION CHANGE. PT. AMBULATED 150' (LAPS IN ROOM D/T COVID ISOLATION) W/ RW SBA-MOD I. PT. ABLE TO NEGOTIATE TURN WITHOUT DIFFICULTY. PT. DID HAVE A HALLUCINATION OF SEEING "3 PIGS" ON THE LINEN CART WHILE WALKING. O2 SATS 93-94% AFTER WALK. PT. RESTED X ~ 2 MINS THEN PERFORMED STANDING SQUATS AND CALF RAISES AT WALKER X 10 REPS. PT. TOLERATED RX WELL. PROGRESSING WELL W/ INDEPENDENCE W/ FUNCTIONAL MOBILITY AND ACTIVITY TOLERANCE. WILL CONT. P.T. 5X/WK TO ADDRESS FUNCTIONAL DEFICITS AND INCREASE TOLERANCE TO ACTIVITY. Initialized on 06/09/21 16:20 - END OF NOTE 06/09/21 14:30 Case Management Note by Belén Kilgore FAXED REFERRAL TO [facility] IN [place], THEY ARE CURRENTLY ACCEPTING COVID PATIENTS AND STATE THEY ARE IN NETWORK WITH HER INSURANCE. Initialized on 06/09/21 14:30 - END OF NOTE Assessment/Plan (1) SARS-CoV-2 positive Current Visit: Yes Status: Acute Code(s): U07.1 - COVID-19 (2) Generalized weakness Current Visit: Yes Status: Acute Assessment & Plan: plan to transfer to rehab ([facility]) Code(s): R53.1 - WEAKNESS
--- NOTE | 2021-06-11 09:29 | DS ---
ADMISSION DIAGNOSES: 1) COVID. 2) Syncopal spell. 3) Generalized weakness. 4) Incontinence of stool. 5) Probably schizophrenia. 6) Dementia. DISCHARGE DIAGNOSES: 1) COVID. 2) SYNCOPAL SPELL. 3) GENERALIZED WEAKNESS. 4) INCONTINENCE OF STOOL. 5) PROBABLY SCHIZOPHRENIA. 6) DEMENTIA. HISTORY: The patient was brought into the emergency room when she had a fall and could not get up and seemed to be a little more confused. At the time I saw her she was in no distress. She was pleasant. She acted like she recognized me and I may have known her from the past. She has known dementia. She states for years she has had hallucinations. She had been diagnosed in the past with schizophrenia, she thinks. She states she just ignores them most of the time which is a reasonable treatment for a lot of schizophrenics. Apparently she was living at home and her son has been living with her but he has severe health problems and has not been able to help much lately. She is . She has a home health care agency involved also. The family is alleging that she is just confused because she has urinary tract infection and that is usually a misconception of course. They think she could go to a correction to get urinary tract infection taken care of. I do not know of any correction that does rehab for urinary tract infections and also we will have a hard time placing her in a nursing facility if she has COVID and also if she has diagnosis of schizophrenia or other problems like that. PHYSICAL EXAMINATION: The patient is alert, orientated to place and time, knows who I am this morning. CHEST: Clear. CVS: Heart sounds regular. ABDOMEN: Soft. No masses. EXTREMITIES: Moves all okay. LAB DATA AND TESTS: White count was 5.2, hemoglobin was 9.1, PLT count was 111,000. MEDICATIONS: Home medicines were: Wellbutrin 150 q.d., Plavix 75 q.d., desvenlafaxine succinate 50 q.d., Prozac 10 q.d., heparin subcu b.i.d. She had been started on some Levaquin 250 q.d. for urinary tract infection, lisinopril 10 q.d., Lomotil PRN, Protonix 40, KCL 10 q.d., Risperdal 0.5 was stopped on 07/04/2020. ALLERGIES: PENICILLIN. SOCIAL HISTORY: She is . is not involved although he did put his two cents in and said she is mentally not capable and needs placed in a nursing facility. HOSPITAL COURSE: The patient did very well after she was admitted. She ate well, had no more passing out spells or lightheaded spells. Her oxygen levels were normal without oxygen. Her white count stayed low normal. I wonder if she got the COVID vaccine. There is no particular history about that I guess. Initially, we thought she had some colitis. CT showed some distended small bowel loops, right hemicolon with fluid leveling suggestive of enteric colitis and she had a large bowel movement in the emergency room all over herself. She has incidental cirrhotic liver with hepatitis panel negative. Certainly she had some GI problems which may have been from the COVID or from an ileus and she was placed on antibiotics for that although her white count was low. It is just consistent with her COVID. She is eating, no diarrhea and she can be sent to a nursing facility or her home situation.
[2021-06-11] MEDS: FEOSOL 325 MG PO SCH (09:50)
[2021-06-11] MEDS: PLAVIX 75 MG Tablet PO SCH (09:50)
[2021-06-11] MEDS: ZYLOPRIM 100 MG PO SCH ×2 (09:50→21:23)
[2021-06-11] MEDS: ZOCOR 20MG PO SCH (09:50)
[2021-06-11] MEDS: Zestril 10 MG PO SCH (09:50)
[2021-06-11] MEDS: Protonix 40MG Tablet PO SCH (09:50)
[2021-06-11] MEDS: Klor Con 10 MEQ PO SCH (09:50)
[2021-06-11] MEDS: MAG-OX 400 PO SCH (09:51)
[2021-06-11] MEDS: PROZAC 10 MG PO SCH (09:51)
[2021-06-11] MEDS: Risperdal 1 MG PO SCH (09:51)
[2021-06-11] MEDS: Wellbutrin XL 150 MG PO SCH (09:51)
[2021-06-11] MEDS: PRISTIQ ER PO SCH (09:51)
[2021-06-11] MEDS: Levofloxacin 250MG Tablet PO SCH (09:51)
[2021-06-11] MEDS: Heparin 5000 UNITS/0.5 ML (HIGH RISK MED) SQ SCH (13:11)
--- NOTE | 2021-06-11 13:54 | PCM.NOTE ---
Date and Time: 06/11/21 5267 Subjective Assessment: doing better - Review of Systems Constitutional: No Fever, No Chills Eyes: No Symptoms Ears, Nose, & Throat: No Symptoms Respiratory: No Cough, No Short Of Breath Cardiac: No Chest Pain, No Edema, No Syncope Abdominal/Gastrointestinal: No Abdominal Pain, No Nausea, No Vomiting, No Diarrhea Genitourinary Symptoms: No Dysuria Musculoskeletal: No Back Pain, No Neck Pain Skin: No Rash Neurological: No Dizziness, No Focal Weakness, No Sensory Changes Psychological: No Symptoms Endocrine: No Symptoms Hematologic/Lymphatic: No Symptoms Immunological/Allergic: No Symptoms Objective Exam General Appearance: no apparent distress, alert Neurologic Exam: alert, oriented x 3, cooperative, normal mood/affect, nml cerebellar function, sensation nml, No motor deficits Skin Exam: normal color, warm, dry Eye Exam: PERRL, EOMI, eyes nml inspection Ears, Nose, Throat Exam: normal ENT inspection, pharynx normal, moist mucous membranes Neck Exam: normal inspection, non-tender, supple, full range of motion Respiratory Exam: normal breath sounds, lungs clear, No respiratory distress Cardiovascular Exam: regular rate/rhythm, normal heart sounds Gastrointestinal/Abdomen Exam: soft, No tenderness, No mass Extremity Exam: normal inspection, normal range of motion Back Exam: normal inspection, normal range of motion, No CVA tenderness, No vertebral tenderness Pelvic Exam: deferred Rectal Exam: deferred OBJECTIVE DATA Vital Signs: Vital Signs - 24 hr Temp Pulse Resp BP Pulse Ox 06/11/21 12:00 84 16 93 L 06/11/21 10:00 88 16 98 06/11/21 08:00 90 16 99 06/11/21 06:00 85 94 L 06/11/21 04:00 35.9 F 84 18 146/65 94 L 06/11/21 02:00 81 17 97 06/11/21 00:00 96.4 F 95 H 17 157/81 95 06/10/21 22:00 76 96 06/10/21 20:00 96.4 F 88 17 133/71 98 06/10/21 17:55 79 17 96 06/10/21 15:48 82 17 108/68 96 Pain Assessment - Last Documented Pain Intensity 0 Pain Scale Used 0-10 Pain Scale Intake and Output: Intake & Output 06/09/21 06/10/21 06/11/2122 11:59 11:59 11:59 11:59 Intake Total 1872 660 840 Balance 1872 660 840 Radiology Exams: Radiology Procedures Category Date Time Status CHEST 1 VIEW (PORTABLE) Urgent Exams 06/09/21 14:21 Completed Multi-Disciplinary Progress Notes: Multi-Disciplinary Progress Notes 06/11/21 12:54 Nutrition Note by Nidhi Tai Note pt on day 7 obs. waiting for facility placement. House regular diet con't with good po intake. GRIS Priest Initialized on 06/11/21 12:54 - END OF NOTE 06/11/21 12:38 Case Management Note by Roselia Maza S/W KECIA- SHE CONTINUES TO WANT PATIENT TO GO REHAB AT [facility] IF INSURANCE APPROVES. IF NOT- SHE WOULD BE INTERESTED IN HHC BUT HHC HAS BEEN DENIED BEFORE WELL. Initialized on 06/11/21 12:38 - END OF NOTE 06/11/21 09:21 Case Management Note by Roselia Maza REACHED OUT TO [facility] TO CHECK ON REFERRAL- LM Initialized on 06/11/21 09:21 - END OF NOTE 06/11/21 07:27 Pharmacy Note by Renzo Trejo Today is day 8 of Levaquin. Please review if this needs continued. Initialized on 06/11/21 07:27 - END OF NOTE 06/10/21 17:20 Physical Therapy Note by [id number] PT. REPORTS NO C/O PN. AGREEABLE TO P.T. AWAITING INS PRE-CERT FOR SNF TO CONT. REHAB. PT. CONT. TO MAKE SOME REMARKS THAT ARE OUT OF CONTEXTOR DON'T MAKE SENS BUT USUALLY IS ABLE TO RETURN TO P.T. TASK. PERFORMED SEATED LE EX'S X 10 REPS - ANKLE PUMPS, HEEL SLIDES, SLRS, SPINE HIP ABD, LAQS, AND MARCHES. O2 SATS 94-96% ON RA. PT. PERFORMED SIT TO STAND - MOD I. AMBULATED 150' (LAPS IN ROOM) W/ RW AND SBA. O2 SATS 95% AFTER WALK ON RA. NO INSTABILITY NOTED W/ GAIT . PT. DOES EXHIBIT SLOW PACE AND DECREASED STRIDE LENGTH. PT. DID MENTION SOME L KNEE INSTABILITY @ HOME AT TIMES AND REPORTS THAT WHEN SHE HAS FALLEN IT IS ON L LE. CONT. P.T. 5X/WK UNTIL D/C TO PREP FOR REHAB STAY WHEN INSURANCE AUTH IS GRANTED. Initialized on 06/10/21 17:20 - END OF NOTE Assessment/Plan (1) SARS-CoV-2 positive Current Visit: Yes Status: Acute Assessment & Plan: Last Vital Signs Temp 35.9 F 06/11/21 04:00 Pulse 84 06/11/21 12:00 Resp 16 06/11/21 12:00 BP 146/65 06/11/21 04:00 Pulse Ox 93 L 06/11/21 12:00 Allergies Penicillins Allergy (Verified 04/24/21 13:42) Swelling of Tongue and Lips Active Medications Acetaminophen (Acetaminophen 325 Mg Tablet) 650 mg PO Q4H PRN PRN PRN Reason: PAIN AND/OR FEVER Stop: 07/08/21 03:12 Last Admin: 06/09/21 09:12 Dose: 650 mg Allopurinol (Allopurinol 100 Mg Tablet) 100 mg PO BID KATERINA Stop: 07/04/21 21:59 Last Admin: 06/11/21 09:50 Dose: 100 mg Bupropion HCl (Bupropion Hcl 150 Mg Tablet Xl) 150 mg PO DAILY AKTERINA Stop: 07/04/21 17:59 Last Admin: 06/11/21 09:51 Dose: 150 mg Clopidogrel Bisulfate (Clopidogrel Bisulfate 75 Mg Tablet) 75 mg PO DAILY KATERINA Stop: 07/04/21 17:59 Last Admin: 06/11/21 09:50 Dose: 75 mg Desvenlafaxine Succinate (Desvenlafaxine Succinate 50 Mg Tab.Er.24h) 50 mg PO DAILY KATERINA Stop: 07/04/21 17:59 Last Admin: 06/11/21 09:51 Dose: 50 mg Ferrous Sulfate (Ferrous Sulfate 325 Mg Tablet) 325 mg PO DAILY KATERINA Stop: 07/08/21 12:59 Last Admin: 06/11/21 09:50 Dose: 325 mg Fluoxetine HCl (Fluoxetine Hcl 10 Mg Tablet) 10 mg PO DAILY KATERINA Stop: 07/04/21 17:59 Last Admin: 06/11/21 09:51 Dose: 10 mg Lisinopril (Lisinopril 10 Mg Tablet) 10 mg PO DAILY KATERINA Stop: 07/04/21 17:59 Last Admin: 06/11/21 09:50 Dose: 10 mg Loperamide HCl (Loperamide Hcl 2 Mg Capsule) 2 mg PO Q4H PRN PRN Stop: 07/04/21 17:06 Lorazepam (Lorazepam 1 Mg Tablet) 1 mg PO Q4H PRN PRN PRN Reason: ANXIETY/SLEEP Stop: 07/04/21 17:04 Last Admin: 06/10/21 08:03 Dose: 1 mg Magnesium Oxide (Magnesium Oxide 400 Mg Tablet) 400 mg PO DAILY KATERINA Stop: 07/04/21 17:59 Last Admin: 06/11/21 09:51 Dose: 400 mg Ondansetron HCl (Ondansetron Hcl 4 Mg/2 Ml Vial) 4 mg IV Q6H PRN PRN PRN Reason: NAUSEA/VOMITING Stop: 07/04/21 11:05 Pantoprazole Sodium (Protonix (Pantoprazole) 40 Mg Tablet) 40 mg PO DAILY KATERINA Stop: 07/05/21 09:59 Last Admin: 06/11/21 09:50 Dose: 40 mg Potassium Chloride (Potassium Chloride 10 Meq Tablet) 20 meq PO DAILY KATERINA Stop: 07/04/21 17:59 Last Admin: 06/11/21 09:50 Dose: 20 meq Risperidone (Risperidone 1 Mg Tablet) 0.5 mg PO DAILY KATERINA Stop: 07/04/21 17:59 Last Admin: 06/11/21 09:51 Dose: 0.5 mg Simvastatin (Simvastatin 20 Mg Tablet) 40 mg PO DAILY KATERINA Stop: 07/04/21 17:59 Last Admin: 06/11/21 09:50 Dose: 40 mg Intake & Output 06/11/21 06/12/21 11:59 11:59 Intake Total 840 Balance 840 Code(s): U07.1 - COVID-19 (2) Generalized weakness Current Visit: Yes Status: Acute Code(s): R53.1 - WEAKNESS
[2021-06-12] MEDS: TYLENOL 325 MG PO PRN (01:50)
[2021-06-12] MEDS: FEOSOL 325 MG PO SCH (09:37)
[2021-06-12] MEDS: ZOCOR 20MG PO SCH (09:37)
[2021-06-12] MEDS: Klor Con 10 MEQ PO SCH (09:37)
[2021-06-12] MEDS: Protonix 40MG Tablet PO SCH (09:37)
[2021-06-12] MEDS: PLAVIX 75 MG Tablet PO SCH (09:37)
[2021-06-12] MEDS: Zestril 10 MG PO SCH (09:37)
[2021-06-12] MEDS: MAG-OX 400 PO SCH (09:38)
[2021-06-12] MEDS: PRISTIQ ER PO SCH (09:38)
[2021-06-12] MEDS: PROZAC 10 MG PO SCH (09:39)
[2021-06-12] MEDS: Risperdal 1 MG PO SCH (09:39)
[2021-06-12] MEDS: ZYLOPRIM 100 MG PO SCH (09:39)
[2021-06-12] MEDS: Wellbutrin XL 150 MG PO SCH (09:39)
[2021-06-12 12:44] VITALS: BP 147/75; PULSE 102; O2SAT 98
--- NOTE | 2021-06-12 17:04 | PCM.DS ---
Discharge Summary Date of Admission: 06/04/21 15:48 Admitting Physician: JAQUAN FAIRBANKS Primary Care Provider: KAYLEIGH SALDANA Allergies Allergies Penicillins Allergy (Verified 04/24/21 13:42) Swelling of Tongue and Lips Hospital Summary - Hospital Course Hospital Course: Chief Complaint Diagnosis covid Allergies Allergy/AdvReac Type Severity Reaction Status Date / Time Penicillins Allergy Swelling Verified 04/24/21 13:42 of Tongue and Lips Vital Signs (Last 24 hours) Temp Pulse Resp BP Pulse Ox 06/12/21 16:00 19 06/12/21 14:00 19 06/12/21 12:00 95.7 F 102 H 19 147/75 98 06/12/21 11:58 16 06/12/21 10:00 82 16 96 06/12/21 08:00 95.7 F 109 H 25 H 160/58 100 06/12/21 05:53 90 16 94 L 06/12/21 04:00 96.6 F 93 H 16 155/78 96 06/12/21 01:54 96.6 F 97 H 15 147/69 96 06/12/21 00:00 96.1 F 90 15 128/67 96 06/11/21 22:00 15 96 06/11/21 20:00 96.1 F 101 H 16 128/67 97 06/11/21 19:29 18 06/11/21 18:00 18 Home Medications Medication Instructions Recorded Confirmed Last Taken Type Allopurinol 100 mg [Zyloprim 100 mg PO BID 06/04/21 06/04/21 06/03/21 History 100 mg] Bupropion HCl Xl 150 mg 150 mg PO DAILY 06/04/21 06/04/21 06/03/21 History [Wellbutrin XL 150 MG] Fluoxetine HCl 10 mg [Prozac 10 10 mg PO DAILY 06/04/21 06/04/21 06/03/21 History mg] Rosuvastatin Calcium 20 mg PO DAILY 06/04/21 06/04/21 06/03/21 History risperiDONE [Risperdal] 0.25 mg PO DAILY 06/04/21 06/04/21 06/03/21 History Current Medications Generic Name Dose Route Start Last Admin Trade Name Freq PRN Reason Stop Dose Admin Acetaminophen 650 mg 06/08/21 03:13 06/12/21 01:50 Acetaminophen 325 Mg Tablet PO 07/08/21 03:12 650 mg Q4H PRN PRN Administration PAIN AND/OR FEVER Allopurinol 100 mg 06/04/21 22:00 06/12/21 09:39 Allopurinol 100 Mg Tablet PO 07/04/21 21:59 100 mg BID KATERINA Administration Bupropion HCl 150 mg 06/04/21 18:00 06/12/21 09:39 Bupropion Hcl 150 Mg Tablet Xl PO 07/04/21 17:59 150 mg DAILY KATERINA Administration Clopidogrel Bisulfate 75 mg 06/04/21 18:00 06/12/21 09:37 Clopidogrel Bisulfate 75 Mg Tablet PO 07/04/21 17:59 75 mg DAILY KATERINA Administration Desvenlafaxine Succinate 50 mg 06/04/21 18:00 06/12/21 09:38 Desvenlafaxine Succinate 50 Mg Tab.Er.24h PO 07/04/21 17:59 50 mg DAILY KATERINA Administration Ferrous Sulfate 325 mg 06/08/21 13:00 06/12/21 09:37 Ferrous Sulfate 325 Mg Tablet PO 07/08/21 12:59 325 mg DAILY KATERINA Administration Fluoxetine HCl 10 mg 06/04/21 18:00 06/12/21 09:39 Fluoxetine Hcl 10 Mg Tablet PO 07/04/21 17:59 10 mg DAILY KATERINA Administration Lisinopril 10 mg 06/04/21 18:00 06/12/21 09:37 Lisinopril 10 Mg Tablet PO 07/04/21 17:59 10 mg DAILY KATERINA Administration Loperamide HCl 2 mg 06/04/21 17:07 Loperamide Hcl 2 Mg Capsule PO 07/04/21 17:06 Q4H PRN PRN Lorazepam 1 mg 06/04/21 17:05 06/10/21 08:03 Lorazepam 1 Mg Tablet PO 07/04/21 17:04 1 mg Q4H PRN PRN Administration ANXIETY/SLEEP Magnesium Oxide 400 mg 06/04/21 18:00 06/12/21 09:38 Magnesium Oxide 400 Mg Tablet PO 07/04/21 17:59 400 mg DAILY KATERINA Administration Ondansetron HCl 4 mg 06/04/21 11:06 Ondansetron Hcl 4 Mg/2 Ml Vial IV 07/04/21 11:05 Q6H PRN PRN NAUSEA/VOMITING Pantoprazole Sodium 40 mg 06/05/21 10:00 06/12/21 09:37 Protonix (Pantoprazole) 40 Mg Tablet PO 07/05/21 09:59 40 mg DAILY KATERINA Administration Potassium Chloride 20 meq 06/04/21 18:00 06/12/21 09:37 Potassium Chloride 10 Meq Tablet PO 07/04/21 17:59 20 meq DAILY KATERINA Administration Risperidone 0.5 mg 06/04/21 18:00 06/12/21 09:39 Risperidone 1 Mg Tablet PO 07/04/21 17:59 0.5 mg DAILY KATERINA Administration Simvastatin 40 mg 06/04/21 18:00 06/12/21 09:37 Simvastatin 20 Mg Tablet PO 07/04/21 17:59 40 mg DAILY KATERINA Administration Discontinued Medications Generic Name Dose Route Start Last Admin Trade Name Freq PRN Reason Stop Dose Admin Acetaminophen Confirm 06/08/21 03:11 Acetaminophen 325 Mg Tablet Administered 06/08/21 03:12 Dose 650 mg .ROUTE .STK-MED ONE Heparin Sodium (Beef Lung) 5,000 unit 06/04/21 22:00 06/11/21 13:11 Heparin 5000 Unit/0.5 Ml Syringe SQ 07/04/21 21:59 Not Given BID KATERINA Sodium Chloride 1,000 mls @ 999 mls/hr 06/04/21 06:41 06/04/21 08:48 Sodium Chloride 0.9% 1000 Ml IV 06/04/21 07:41 Infused .Q1H1M STA Infusion Sodium Chloride Confirm 06/04/21 07:12 Sodium Chloride 0.9% 1000 Ml Administered 06/04/21 07:13 Dose 1,000 mls @ ud .ROUTE .STK-MED ONE Sodium Chloride 1,000 mls @ 999 mls/hr 06/04/21 08:11 06/04/21 11:35 Sodium Chloride 0.9% 1000 Ml IV 06/04/21 09:11 Infused .Q1H1M STA Infusion Sodium Chloride Confirm 06/04/21 09:00 Sodium Chloride 0.9% 1000 Ml Administered 06/04/21 09:01 Dose 1,000 mls @ ud .ROUTE .STK-MED ONE Sodium Chloride 1,000 mls @ 30 mls/hr 06/04/21 11:15 06/08/21 03:48 Sodium Chloride 0.9% 1000 Ml IV 07/04/21 11:14 100 mls/hr .Q24H KATERINA Administration Levofloxacin/Dextrose 500 mg in 100 mls @ 100 mls/hr 06/04/21 11:27 06/04/21 13:24 Levofloxacin 500mg/100ml D5w IV 06/04/21 12:26 Infused STAT STA Infusion Levofloxacin/Dextrose Confirm 06/04/21 11:32 Levofloxacin 500mg/100ml D5w Administered 06/04/21 11:33 Dose 500 mg in 100 mls @ ud IV .STK-MED ONE Levofloxacin 250 mg 06/05/21 10:00 06/11/21 09:51 Levofloxacin 250 Mg Tab PO 07/05/21 09:59 250 mg DAILY KATERINA Administration Lorazepam 1 mg 06/04/21 17:05 Lorazepam 2 Mg/1 Ml 2 Mg Vial IV 07/04/21 17:04 Q4H PRN PRN ANXIETY/SLEEP Miscellaneous Information 1 each 06/04/21 17:30 Medication Intervention 1 Each Each PO 07/04/21 17:29 .RN TO CHECK ON KATERINA Pantoprazole Sodium 40 mg 06/04/21 16:00 06/04/21 17:14 Pantoprazole 40 Mg Vial IV 07/04/21 15:59 40 mg Q24H10 KATERINA Administration Intake & Output (Last 24 hours) 06/10/21 06/11/21 06/12/21 06/13/21 11:59 11:59 11:59 11:59 Intake Total 571 493 4609 420 Output Total 400 400 Balance 821 752 2161 20 Orders (Last 24 hours) Category Date Time Status Discharge Planning,Consult Routine Discharge 06/12/21 Active Discharge Routine Discharge 06/12/21 13:30 Ordered Patient Care Notes (Last 24 hours) 06/12/21 16:48 Nursing Note by Clare Pathak Discharge instructions reviewed with Jayna CASIANO over the phone. Denies questions or concerns. Patient taken out to son's personal vehicle at this time. Given walker that was delivered by [facility] to facility for patient. Initialized on 06/12/21 16:48 - END OF NOTE 06/12/21 13:49 Case Management Note by Roselia Maza PRIMARY RN GIVEN P[facility]SE [facility] TO SEND HOME WITH PATIENT AT TIME OF DC Initialized on 06/12/21 13:49 - END OF NOTE 06/12/21 13:40 Case Management Note by Roselia Maza S/W JAYNA- SHE HAD NOTED THAT IF PATIENT WAS ABLE TO BE SET UP WITH [facility] [place] SHE WOULD PREFER THAT D/T PATIENT NEEDING TO GO TO A [facility] RETIREMENT. SHE REPORTS IN THE PAST PATIENT WAS DENIED [facility] SERVICES. SENT REFERRAL TO [facility] PER JAYNA'S REQUEST- THEY RAN INSURANCE AND WILL BE ABLE TO SERVICE THE PATIENT. THEY WILL BE ABLE TO START SERVICES 06/13 OR 06/14. JAYNA WAS NOTIFIED- SHE WOULD LIKE TO CONTINUE WITH THE PLAN FOR DC INSTEAD OF THE [place]. SHE REPORTS PATIENT LIVES WITH HER SON AND HE WILL BE ABLE TO PROVIDE CARE FOR HER IN BETWEEN [facility] VISITS. SHE REPORTS PATIENT DOES NOT HAVE A WALKER AT HOME- WILL SEND ONE IN TO [facility]. Initialized on 06/12/21 13:40 - END OF NOTE 06/12/21 13:38 Nursing Note by Clare Pathak telecommunications network planner came and informed this nurse that patient's family has changed their mind about discharge plan to home. Family now wants patient to come home with home health care. Dr. Saldana called and informed. New order received to discharge patient to home with home health care, continue all home meds, follow up with Dr. Saldana in 1 week. Appt made for patient on 06/20/21 @ 1045. Initialized on 06/12/21 13:38 - END OF NOTE 06/12/21 13:38 Case Management Note by Roselia Maza ORDER FOR WALKER SENT TO [facility] AT THIS TIME WITH INSTRUCTIONS TO DELIVER TO [facility] TODAY. ALSO CALLED AND S/W [facility] AND NOTIFIED THEM THAT PATIENT IS WAITING ON THIS FOR DC- SHE VERIFIED UNDERSTANDING Initialized on 06/12/21 13:38 - END OF NOTE 06/12/21 13:29 Case Management Note by Roselia Maza WAS FAXED REFERRAL- THEY CAN ACCEPT PATIENT. THEY WILL NEED NOTIFIED AT TIME OF DC AT [phone]. THEY WILL NEED FAXED THE DC INSTRUCTIONS, DC MED LIST AND DC SUMMARY ( IF AVAILABLE) TO [phone] Initialized on 06/12/21 13:29 - END OF NOTE 06/12/21 12:37 Nursing Note by Clare Pathak Dr. in and made rounds on patient, no new orders received. Initialized on 06/12/21 12:37 - END OF NOTE 06/11/21 19:12 Physical Therapy Note by [email or web address],Amy PT. SEEN BY P.T. THIS PM. REPORTS NO C/O PN OR SOB. AGREEABLE TO P.T. SITTING IN CHAIR UPON P.T. ARRIVAL TO ROOM. PERFORMED SIT TO STAND MOD I. AMBULATED 150' IN ROOM (LAPS IN ROOM) W/ RW AND SBA. NO UNSTEADINESS NOTED. IMPROVED STRIDE LENGTH AND PACE NOTED TODAY. PT. PERFORMED SEATED LE EX'S OF LAQS, MARCHES, HEEL SLIDES, ANKLE PUMPS, ABD SLIDES. SLRS. PERFORMED ALL W/ MINIMAL CUES. PT. ALERT BUT CONFUSED TODAY AND DID MENTIONED SEEING RATS IN HER ROOM EARLIER TODAY. DESPITE THIS, PT. HAS BEEN PLEASANT AND COOPERATIVE AND REDIRECTS WELL TO THERAPY TASKS. STILL AWAITING INS PA FOR SNF STAY FOR REHAB. WILL CONT. P.T. 5X/WK TO ADDRESS DECREASED [facility] TO PREP FOR REHAB STAY/D/C HOME W/ HHC. RX TIME - [id number] Initialized on 06/11/21 19:12 - END OF NOTE - Vitals & Intake/Output Vital Signs: Vital Signs Temperature 95.7 F 06/12/21 12:00 Pulse Rate 102 H 06/12/21 12:00 Respiratory Rate 19 06/12/21 16:00 Blood Pressure 147/75 06/12/21 12:00 O2 Sat by Pulse Oximetry 98 06/12/21 12:00 Intake & Output: Intake & Output 06/10/21 06/11/21 06/12/21 06/13/21 11:59 11:59 11:59 11:59 Intake Total 542 492 3335 420 Output Total 400 400 Balance 894 633 1310 20 - Lab Result Diagrams: 06/09/21 09:00 06/09/21 09:00 Micro Results-Entire Visit: Microbiology 06/04/21 07:20 Blood Culture Gram Stain - Final Blood Not Reportable Blood Culture - Final NO GROWTH 06/04/21 06:40 Blood Culture Gram Stain - Final Blood Not Reportable Blood Culture - Final NO GROWTH 06/04/21 08:37 Urine Culture - Final Clean Catch Midstream YEAST PRESENT - Procedures and Test Procedures and Tests throughout Hospitalization: Therapy Orders & Screens 06/06/21 12:35 PT Eval & Treat ( Order) ONCE Reason for Eval:: RETIREMENT REFERRAL FOR REHAB Diagnosis: covid Discharge Exam General Appearance: no apparent distress, alert Neurologic Exam: alert, oriented x 3, cooperative, normal mood/affect, nml cerebellar function, sensation nml, No motor deficits Eye Exam: PERRL, EOMI, eyes nml inspection Ears, Nose, Throat Exam: normal ENT inspection, pharynx normal, moist mucous membranes Neck Exam: normal inspection, non-tender, supple, full range of motion Respiratory Exam: normal breath sounds, lungs clear, No respiratory distress Cardiovascular Exam: regular rate/rhythm, normal heart sounds Gastrointestinal/Abdomen Exam: soft, No tenderness, No mass Pelvic Exam: deferred Rectal Exam: deferred Back Exam: normal inspection, normal range of motion, No CVA tenderness, No vertebral tenderness Extremity Exam: normal inspection, normal range of motion Skin Exam: normal color, warm, dry Final Diagnosis/Problem List - Final Discharge Diagnosis/Problem (1) SARS-CoV-2 positive Current Visit: Yes Status: Resolved Code(s): U07.1 - COVID-19 (2) Generalized weakness Current Visit: Yes Status: Resolved Code(s): R53.1 - WEAKNESS - Discharge Discharge Date: 06/12/21 Disposition: Home, Self-Care Condition: Stable Prescriptions: Continue Clopidogrel Bisulfate 75 mg [PLAVIX 75 MG Tablet] 75 mg PO DAILY Potassium Chloride 10 Meq Tab* [Klor Con 10 MEQ] 20 meq PO DAILY Magnesium Oxide [Magnesium] 400 mg PO DAILY Desvenlafaxine Succinate [Pristiq] 50 mg PO DAILY Omeprazole 20 mg PO DAILY lisinopriL [Lisinopril] 10 mg PO DAILY nadoloL [Nadolol] 40 mg PO DAILY Fluoxetine HCl 10 mg [Prozac 10 mg] 10 mg PO DAILY risperiDONE [Risperdal] 0.25 mg PO DAILY Bupropion HCl Xl 150 mg [Wellbutrin XL 150 MG] 150 mg PO DAILY Allopurinol 100 mg [Zyloprim 100 mg] 100 mg PO BID Rosuvastatin Calcium 20 mg PO DAILY Instructions: Colitis, Coronavirus Disease 2019 (COVID-19) (DC) Additional Instructions: [facility] WILL BE IN CONTACT TO ARRANGE A VISIT. THEIR PHONE NUMBER IS [phone] Follow up with: KAYLEIGH SALDANA MD [Primary Care Provider] - 06/20/21 10:45 am (At the [place] office.) Forms: Discharge Instructions
== END 2021-06-12 16:48 | disposition home health service (06) ==
LOC: ED 06:10 → MED SURG 15:48
PROVIDERS: ADMIT Family Medicine; ATTEND Family Medicine
DX: U07.1 COVID-19 (principal); R55 Syncope and collapse; R53.1 Weakness; R15.9 Full incontinence of feces; F20.9 Schizophrenia, unspecified; F03.90 Unspecified dementia, unspecified severity, without behavioral disturbance, psychotic disturbance, mood disturbance, and anxiety; K52.9 Noninfective gastroenteritis and colitis, unspecified; I25.10 Atherosclerotic heart disease of native coronary artery without angina pectoris; I10 Essential (primary) hypertension; Z79.01 Long term (current) use of anticoagulants; Z79.899 Other long term (current) drug therapy; Z20.828 Contact with and (suspected) exposure to other viral communicable diseases
CPT/HCPCS: 0241U; 36000; 36415; 71045; 74176; 80053; 80074; 81001; 82550; 84484; 85025; 85027; 87040; 87086; 93005; 93041; 94760; 96360; 96361; 97110; 99285; P9612; J1644; J1956; A9270-GY

== ENCOUNTER 2021-08-01 06:47 | Observation (INO) | payer MEDICARE ==
[2021-08-01] MEDS ORDERED: Sodium Chloride 0.9% 1000 ML 1,000 ML ONE ×3 (06:59→11:14)
--- NOTE | 2021-08-01 07:30 | ERPHSYRPT ---
- History of Present Illness Source: patient, EMS Exam Limitations: clinical condition Patient Subjective Stated Complaint: found outside in the road, unknown how long she has been outside Triage Nursing Assessment: pt was found on the side of the road by a passerby who was going to work. Pt was in her clothes/robe. It is unknown how long pt had been outside, but she was extremely cold to touch. Pt is alert and oriented to person and place, states "it's May" and does not know the President. Lungs clear but diminished throughout. Abd soft with active bowel sounds x4 quad, nontender. Pt has small purple bruise to rt knee where she had fallen. Malena hugger applied to pt immediately upon arrival with a tympanic temp of 95.0. Fluid warmer started and temp sensing f/c placed. Physician History: 71 yo wf found down outside of her home hypothermic. Pt arrived per EMS w good airway/Good BP/hypothermic w 91.8 temp. Nurses applied warm blankets/Bear Hugger/warm fluids/Adorno catheter to monitor temperature. She is oriented x2 and denies chest pain/dyspnea/N/V/D/dysuria/focal weakness.Pt last seen by son when she went to bed at 22:00. Timing/Duration: other (Last seen at 22:00) Modifying Factors: Improves With: nothing Associated Symptoms: No nausea, No vomiting, No abdominal pain, No shortness of breath, No heartburn, No diaphoresis, No cough, No chills, No chest pain, No fever, No headaches, No loss of appetite, No malaise, No rash, No syncope, No seizure, No weakness Allergies/Adverse Reactions: Penicillins Allergy (Verified 08/01/21 07:10) Swelling of Tongue and Lips Home Medications: Clopidogrel Bisulfate 75 mg [PLAVIX 75 MG Tablet] 75 mg PO DAILY 02/12/12 [History] Desvenlafaxine Succinate [Pristiq] 50 mg PO DAILY 02/12/12 [History] Magnesium Oxide [Magnesium] 400 mg PO DAILY 02/12/12 [History] Omeprazole 20 mg PO DAILY 02/12/12 [History] Potassium Chloride 10 Meq Tab* [Klor Con 10 MEQ] 20 meq PO DAILY 02/12/12 [History] lisinopriL [Lisinopril] 10 mg PO DAILY 02/12/12 [History] nadoloL [Nadolol] 40 mg PO DAILY 02/12/12 [History] Allopurinol 100 mg [Zyloprim 100 mg] 100 mg PO BID 06/04/21 [History] Bupropion HCl Xl 150 mg [Wellbutrin XL 150 MG] 150 mg PO DAILY 06/04/21 [History] Fluoxetine HCl 10 mg [Prozac 10 mg] 10 mg PO DAILY 06/04/21 [History] Rosuvastatin Calcium 20 mg PO DAILY 06/04/21 [History] risperiDONE [Risperdal] 0.25 mg PO DAILY 06/04/21 [History] Hx Tetanus, Diphtheria Vaccination/Date Given: Yes Hx Influenza Vaccination/Date Given: Yes Hx Pneumococcal Vaccination/Date Given: Yes Immunizations Up to Date: Yes Travel Risk - International Travel Have you traveled outside of the country in past 3 weeks: No - Coronavirus Screening Are you exhibiting any of the following symptoms?: No Close contact with a COVID-19 positive Pt in past 14-21 Days: No - Vaccine Status Have you recieved a Covid-19 vaccination: Yes 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 - Review of Systems Constitutional: No Symptoms Eyes: No Symptoms Ears, Nose, & Throat: No Symptoms Respiratory: No Symptoms Cardiac: No Symptoms Abdominal/Gastrointestinal: No Symptoms Genitourinary Symptoms: No Symptoms Musculoskeletal: No Symptoms Skin: No Symptoms Neurological: No Symptoms Psychological: No Symptoms Endocrine: No Symptoms Hematologic/Lymphatic: No Symptoms Immunological/Allergic: No Symptoms - Past Medical History Pertinent Past Medical History: Yes Neurological History: Migraines ENT History: No Pertinent History Cardiac History: Coronary Artery Disease, Hypertension Respiratory History: No Pertinent History Endocrine Medical History: No Pertinent History Musculoskeletal History: No Pertinent History GI Medical History: GERD History: Renal Disease Psycho-Social History: No Pertinent History Female Reproductive Disorders: No Pertinent History Other Medical History: UTI,RLS. pt poor historian - Past Surgical History Past Surgical History: Yes Neuro Surgical History: No Pertinent History Cardiac: CABG Respiratory: No Pertinent History Gastrointestinal: No Pertinent History Genitourinary: No Pertinent History Musculoskeletal: No Pertinent History Female Surgical History: No Pertinent History Other Surgical History: colonoscopy. pt poor historian. - Social History Smoking Status: Never smoker Exposure to second hand smoke: No Drug Use: none Patient Lives Alone: No (son lives with her) - Nursing Vital Signs Nursing Vital Signs: Initial Vital Signs Temperature 95.0 F 08/01/21 06:54 Pulse Rate 62 08/01/21 06:54 Respiratory Rate 20 08/01/21 06:54 Blood Pressure 162/80 08/01/21 06:54 O2 Sat by Pulse Oximetry 100 08/01/21 06:54 Pain Scale Pain Intensity 0 Hypertensive/hypothermic - Physical Exam General Appearance: moderate distress (Due to low core body temp) Eye Exam: PERRL/EOMI, eyes nml inspection Ears, Nose, Throat Exam: normal ENT inspection, TMs normal, pharynx normal, moist mucous membranes Neck Exam: normal inspection, non-tender, supple, full range of motion, No meningismus, No mass, No Brudzinski, No Kernig's Respiratory Exam: normal breath sounds, lungs clear, airway intact, No respiratory distress Cardiovascular Exam: regular rate/rhythm, No murmur Gastrointestinal/Abdomen Exam: soft, normal bowel sounds, No tenderness Neurologic Exam: alert, cooperative, firer retort II-XII nml as tested, normal mood/affect, nml cerebellar function, nml station & gait, sensation nml, other (Disoriented to date), No motor deficits, No sensory deficit Skin Exam: normal color, warm, dry Lymphatic Exam: No adenopathy SpO2 Interpretation: normal SpO2: 100 O2 Delivery: Room Air - Course Nursing assessment & vital signs reviewed: Yes EKG Interpreted by Me: RATE (Sinus delmi/R59/Prolonged QT-QTc/Flat T waves/No acute ST changes) - Radiology Exams Chest X-ray Interpretation: Discussed w/ radiologist (CXR neg per Rad) - CT Exams Head CT Interpretation: Discussed w/radiologist (CT head neg) Ordered Tests: Active Orders 24 hr Category Date Time Status EKG-ER Only STAT Care 08/01/21 07:16 Completed Clear Liquid Diet 08/01/21 Dinner Active CHEST 1 VIEW (PORTABLE) Stat Exams 08/01/21 10:02 Completed HEAD WITHOUT CONTRAST [CT] Stat Exams 08/01/21 09:43 Completed BLOOD CULTURE Stat Lab 08/01/21 11:20 Received CBC W DIFF AM.LAB Lab 08/02/21 04:00 Ordered CBC W DIFF Stat Lab 08/01/21 07:30 Completed CK (IN-HOUSE) [CK-Creatinine Phosphokinase] AM.LAB Lab 08/02/21 04:00 Ordered CK-Creatinine Phosphokinase Stat Lab 08/01/21 07:30 Completed CMP AM.LAB Lab 08/02/21 04:00 Ordered CMP Stat Lab 08/01/21 07:30 Completed COVID AG-BINAX NOW RAPID TEST Routine Lab 08/01/21 11:00 Completed CULTURE,URINE Stat Lab 08/01/21 07:30 Received ETHYL ALCOHOL Stat Lab 08/01/21 07:30 Completed Lactic Acid AM.LAB Lab 08/02/21 04:00 Ordered Lactic Acid Stat Lab 08/01/21 07:42 Completed Lactic Acid Stat Lab 08/01/21 09:44 Completed PROTIME WITH INR Stat Lab 08/01/21 07:30 Completed PTT Stat Lab 08/01/21 07:30 Completed TROPONIN Q3H Lab 08/01/21 07:30 Completed TROPONIN Q3H Lab 08/01/21 10:12 Completed TROPONIN Q3H Lab 08/01/21 13:30 Ordered TROPONIN Q3H Lab 08/01/21 16:30 Ordered TROPONIN Q3H Lab 08/01/21 19:30 Ordered UA W/RFX UR CULTURE Stat Lab 08/01/21 07:26 Completed Transfer Order Routine Transfer 08/01/21 Completed Medication Summary Generic Name Dose Route Start Last Admin Trade Name Freq PRN Reason Stop Dose Admin Enoxaparin Sodium 30 mg 08/01/21 13:00 Enoxaparin Sodium 30 Mg/0.3 Ml Syringe SQ 08/31/21 12:59 DAILY KATERINA Sodium Chloride 1,000 mls @ 100 mls/hr 08/01/21 11:45 Sodium Chloride 0.9% 1000 Ml IV 08/31/21 11:44 .Q10H KATERINA Ondansetron HCl 4 mg 08/01/21 11:34 Ondansetron Hcl 4 Mg/2 Ml Vial IV 08/31/21 11:33 Q6H PRN PRN NAUSEA/VOMITING Pantoprazole Sodium 40 mg 08/01/21 13:00 Pantoprazole 40 Mg Vial IV 08/31/21 12:59 Q24H10 KATERINA Discontinued Medications Generic Name Dose Route Start Last Admin Trade Name Freq PRN Reason Stop Dose Admin Enoxaparin Sodium 40 mg 08/02/21 10:00 Enoxaparin Sodium 40 Mg/0.4 Ml Syringe SQ 09/01/21 09:59 DAILY KATERINA Sodium Chloride Confirm 08/01/21 06:59 Sodium Chloride 0.9% 1000 Ml Administered 08/01/21 07:00 Dose 1,000 mls @ ud .ROUTE .STK-MED ONE Sodium Chloride 1,000 mls @ 999 mls/hr 08/01/21 08:00 08/01/21 09:14 Sodium Chloride 0.9% 1000 Ml IV 08/01/21 09:00 Infused .Q1H1M STA Infusion Sodium Chloride 1,000 mls @ 100 mls/hr 08/01/21 08:15 08/01/21 08:08 Sodium Chloride 0.9% 1000 Ml IV 08/31/21 08:14 100 mls/hr .Q10H KATERINA Administration Sodium Chloride 1,000 mls @ 999 mls/hr 08/01/21 11:15 08/01/21 11:16 Sodium Chloride 0.9% 1000 Ml IV 08/01/21 12:15 999 mls/hr .Q1H1M STA Administration Sodium Chloride Confirm 08/01/21 08:01 Sodium Chloride 0.9% 1000 Ml Administered 08/01/21 08:02 Dose 1,000 mls @ ud .ROUTE .STK-MED ONE Sodium Chloride Confirm 08/01/21 11:14 Sodium Chloride 0.9% 1000 Ml Administered 08/01/21 11:15 Dose 1,000 mls @ ud .ROUTE .STK-MED ONE Lab/Rad Data: Laboratory Result Diagrams 08/01/21 07:30 08/01/21 07:30 Laboratory Results 08/01/21 08/01/21 08/01/21 Range/Units 11:00 10:12 09:44 WBC (4.0-10.5) K/mm3 RBC (4.1-5.4) M/mm3 Hgb (12.0-16.0) gm/dl Hct (35-47) % MCV (78-100) fl MCH (26-32) pg MCHC (32-36) g/dl RDW (11.5-14.0) % Plt Count (150-450) K/mm3 MPV (7.5-11.0) fl Gran % (36.0-66.0) % Eos # (Auto) (0-0.5) Absolute Lymphs (auto) (1.0-4.6) Absolute Monos (auto) (0.0-1.3) Lymphocytes % (24.0-44.0) % Monocytes % (0.0-12.0) % Eosinophils % (0.00-5.0) % Basophils % (0.0-0.4) % Absolute Granulocytes (1.4-6.9) Basophils # (0-0.4) PT (9.4-12.5) SECONDS INR (0.8-3.0) APTT (25.1-36.5) SECONDS Sodium (137-145) mmol/L Potassium (3.5-5.1) mmol/L Chloride (98-107) mmol/L Carbon Dioxide (22-30) mmol/L Anion Gap (5-15) MEQ/L BUN (7-17) mg/dL Creatinine (0.52-1.04) mg/dL Estimated GFR ML/MIN Glucose (74-106) mg/dL Lactic Acid 1.1 (0.4-2.0) Calcium (8.4-10.2) mg/dL Total Bilirubin (0.2-1.3) mg/dL AST (14-36) U/L ALT (0-35) U/L Alkaline Phosphatase (38-126) U/L Creatine Kinase (30-135) U/L Troponin I < 0.012 (0.000-0.034) ng/mL Serum Total Protein (6.3-8.2) g/dL Albumin (3.5-5.0) g/dL Urine Color (YELLOW) Urine Appearance (CLEAR) Urine pH (5-6) Ur Specific [place] (1.005-1.025) Urine Protein (Negative) Urine Ketones (NEGATIVE) Urine Blood (0-5) Adama/ul Urine Nitrite (NEGATIVE) Urine Bilirubin (NEGATIVE) Urine Urobilinogen (0-1) mg/dL Ur Leukocyte Esterase (NEGATIVE) Urine WBC (Auto) (0-5) /HPF Urine RBC (Auto) (0-2) /HPF U Hyaline Cast (Auto) (0-2) /LPF U Epithel Cells (Auto) (FEW) /HPF Urine Bacteria (Auto) (NEGATIVE) /HPF Granular Casts (Auto) (NEGATIVE) /LPF Urine Culture Reflexed (NO) Urine Glucose (NEGATIVE) mg/dL Ethyl Alcohol (0-10) mg/dL SARS-CoV-2 Ag (Rapid) NEGATIVE (NEGATIVE) 08/01/21 08/01/21 08/01/21 Range/Units 07:42 07:30 07:30 WBC (4.0-10.5) K/mm3 RBC (4.1-5.4) M/mm3 Hgb (12.0-16.0) gm/dl Hct (35-47) % MCV (78-100) fl MCH (26-32) pg MCHC (32-36) g/dl RDW (11.5-14.0) % Plt Count (150-450) K/mm3 MPV (7.5-11.0) fl Gran % (36.0-66.0) % Eos # (Auto) (0-0.5) Absolute Lymphs (auto) (1.0-4.6) Absolute Monos (auto) (0.0-1.3) Lymphocytes % (24.0-44.0) % Monocytes % (0.0-12.0) % Eosinophils % (0.00-5.0) % Basophils % (0.0-0.4) % Absolute Granulocytes (1.4-6.9) Basophils # (0-0.4) PT 12.8 H (9.4-12.5) SECONDS INR 1.08 (0.8-3.0) APTT 31.7 (25.1-36.5) SECONDS Sodium (137-145) mmol/L Potassium (3.5-5.1) mmol/L Chloride (98-107) mmol/L Carbon Dioxide (22-30) mmol/L Anion Gap (5-15) MEQ/L BUN (7-17) mg/dL Creatinine (0.52-1.04) mg/dL Estimated GFR ML/MIN Glucose (74-106) mg/dL Lactic Acid 2.2 H (0.4-2.0) Calcium (8.4-10.2) mg/dL Total Bilirubin (0.2-1.3) mg/dL AST (14-36) U/L ALT (0-35) U/L Alkaline Phosphatase (38-126) U/L Creatine Kinase (30-135) U/L Troponin I < 0.012 (0.000-0.034) ng/mL Serum Total Protein (6.3-8.2) g/dL Albumin (3.5-5.0) g/dL Urine Color (YELLOW) Urine Appearance (CLEAR) Urine pH (5-6) Ur Specific [place] (1.005-1.025) Urine Protein (Negative) Urine Ketones (NEGATIVE) Urine Blood (0-5) Adama/ul Urine Nitrite (NEGATIVE) Urine Bilirubin (NEGATIVE) Urine Urobilinogen (0-1) mg/dL Ur Leukocyte Esterase (NEGATIVE) Urine WBC (Auto) (0-5) /HPF Urine RBC (Auto) (0-2) /HPF U Hyaline Cast (Auto) (0-2) /LPF U Epithel Cells (Auto) (FEW) /HPF Urine Bacteria (Auto) (NEGATIVE) /HPF Granular Casts (Auto) (NEGATIVE) /LPF Urine Culture Reflexed (NO) Urine Glucose (NEGATIVE) mg/dL Ethyl Alcohol (0-10) mg/dL SARS-CoV-2 Ag (Rapid) (NEGATIVE) 08/01/21 08/01/21 08/01/21 Range/Units 07:30 07:30 07:26 WBC 11.3 H (4.0-10.5) K/mm3 RBC 4.14 (4.1-5.4) M/mm3 Hgb 12.3 (12.0-16.0) gm/dl Hct 38.3 (35-47) % MCV 92.5 (78-100) fl MCH 29.7 (26-32) pg MCHC 32.1 (32-36) g/dl RDW 17.1 H (11.5-14.0) % Plt Count 210 (150-450) K/mm3 MPV 10.5 (7.5-11.0) fl Gran % 77.1 H (36.0-66.0) % Eos # (Auto) 0.15 (0-0.5) Absolute Lymphs (auto) 2.04 (1.0-4.6) Absolute Monos (auto) 0.36 (0.0-1.3) Lymphocytes % 18.1 L (24.0-44.0) % Monocytes % 3.2 (0.0-12.0) % Eosinophils % 1.3 (0.00-5.0) % Basophils % 0.3 (0.0-0.4) % Absolute Granulocytes 8.68 H (1.4-6.9) Basophils # 0.03 (0-0.4) PT (9.4-12.5) SECONDS INR (0.8-3.0) APTT (25.1-36.5) SECONDS Sodium 145 (137-145) mmol/L Potassium 4.0 (3.5-5.1) mmol/L Chloride 114 H (98-107) mmol/L Carbon Dioxide 22 (22-30) mmol/L Anion Gap 13.2 (5-15) MEQ/L BUN 15 (7-17) mg/dL Creatinine 1.57 H (0.52-1.04) mg/dL Estimated GFR 34.5 ML/MIN Glucose 121 H (74-106) mg/dL Lactic Acid (0.4-2.0) Calcium 8.9 (8.4-10.2) mg/dL Total Bilirubin 0.60 (0.2-1.3) mg/dL AST 51 H (14-36) U/L ALT 28 (0-35) U/L Alkaline Phosphatase 178 H (38-126) U/L Creatine Kinase 329 H (30-135) U/L Troponin I (0.000-0.034) ng/mL Serum Total Protein 7.7 (6.3-8.2) g/dL Albumin 4.2 (3.5-5.0) g/dL Urine Color YELLOW (YELLOW) Urine Appearance SLIGHTLY CLOUDY (CLEAR) Urine pH 6.0 (5-6) Ur Specific [place] 1.011 (1.005-1.025) Urine Protein 100 (Negative) Urine Ketones NEGATIVE (NEGATIVE) Urine Blood SMALL (0-5) Adama/ul Urine Nitrite NEGATIVE (NEGATIVE) Urine Bilirubin NEGATIVE (NEGATIVE) Urine Urobilinogen NEGATIVE (0-1) mg/dL Ur Leukocyte Esterase NEGATIVE (NEGATIVE) Urine WBC (Auto) 0-2 (0-5) /HPF Urine RBC (Auto) NONE (0-2) /HPF U Hyaline Cast (Auto) 6-10 (0-2) /LPF U Epithel Cells (Auto) FEW (FEW) /HPF Urine Bacteria (Auto) NONE (NEGATIVE) /HPF Granular Casts (Auto) 2-5 (NEGATIVE) /LPF Urine Culture Reflexed ORDERED SEPARATELY (NO) Urine Glucose NEGATIVE (NEGATIVE) mg/dL Ethyl Alcohol < 10 (0-10) mg/dL SARS-CoV-2 Ag (Rapid) (NEGATIVE) - Progress Progress: improved Progress Note: 08/01/21 12:46 2L NS warm fluid bolus Bear hugger Warm humidified O2 Pt gradually became normothermic Lactic Acid normalized w 2L NS bolus Called Dr. Reid to admit, but pt's family stated that they now have a physician in [place] as their PCP. Dr. Reid notified of PCP change. Admit per Dr. Donis Pt became mildly hypotensive before transfer to floor which was treated adequately w 3rd NS bolus Blood cultures x2 drawn in ER Pt stable when transferred to floor Pt had good airway and was oriented x 2(baseline) while in ER 08/01/21 12:50 08/01/21 12:51 Counseled pt/family regarding: lab results, diagnosis, rad results - Departure Departure Disposition: Observation Clinical Impression: Hypothermia due to cold environment, Rhabdomyolysis Condition: Stable Critical Care Time: Yes Critical Care Time(excluding separately billable procedures): Critical 30-74 mins
[2021-08-01 07:49] LABS: Absolute Neutrophil Ct (ANC) 8.68 (1.4-6.9); Basophil (Absolute #) 0.03 (0-0.4); Eosinophil % 1.3 % (0.00-5.0); Eosinophil (Absolute #) 0.15 (0-0.5); Hematocrit 38.3 % (35-47); Hemoglobin 12.3 gm/dl (12.0-16.0); Lymphocyte (Absolute #) 2.04 (1.0-4.6); Lymphocytes % 18.1 % (24.0-44.0); Mean Cell Volume 92.5 fl (78-100); Mean Corpuscular Hemoglobin 29.7 pg (26-32); Mean Corpuscular Hgb Concent. 32.1 g/dl (32-36); Mean Platelet Volume 10.5 fl (7.5-11.0); Monocyte (Absolute #) 0.36 (0.0-1.3); Monocytes % 3.2 % (0.0-12.0); Neutrophil % 77.1 % (36.0-66.0); Platelet Count 210 K/mm3 (150-450); Red Blood Count 4.14 M/mm3 (4.1-5.4); Red Cell Distribution Width 17.1 % (11.5-14.0); White Blood Count 11.3 K/mm3 (4.0-10.5)
[2021-08-01 07:53] LABS: ALBUMIN 4.2 g/dL (3.5-5.0); ALKALINE PHOSPHATASE 178 U/L (38-126); ANION GAP 13.2 MEQ/L (5-15); BLOOD UREA NITROGEN 15 mg/dL (7-17); CHLORIDE 114 mmol/L (98-107); CK-Creatinine Phosphokinase 329 U/L (30-135); Calcium 8.9 mg/dL (8.4-10.2); Carbon Dioxide 22 mmol/L (22-30); Creatinine 1 1.57 mg/dL (0.52-1.04); EST GLOMERULAR FILTRATION RATE 34.5 ML/MIN; ETHYL ALCOHOL < 10 mg/dL (0-10); Glucose 121 mg/dL (74-106); SGOT/AST 51 U/L (14-36); SGPT/ALT 28 U/L (0-35); SODIUM 145 mmol/L (137-145); Total Protein 7.7 g/dL (6.3-8.2)
[2021-08-01] MEDS ORDERED: Sodium Chloride 0.9% 1000 ML 1,000 ML IV STA ×2 (08:00→11:15)
[2021-08-01 08:03] LABS: INR 1.08 (0.8-3.0); PROTIME 12.8 SECONDS (9.4-12.5)
[2021-08-01 08:06] LABS: PTT 31.7 SECONDS (25.1-36.5)
[2021-08-01 08:07] LABS: Appearance SLIGHTLY CLOUDY (CLEAR); Bilirubin NEGATIVE (NEGATIVE); Blood SMALL Ery/ul (0-5); Epithelial Cells FEW /HPF (FEW); Glucose NEGATIVE (NEGATIVE); Ketones NEGATIVE (NEGATIVE); Leukocyte Esterase NEGATIVE (NEGATIVE); Nitrite NEGATIVE (NEGATIVE); Protein,Urine Dip 100 (Negative); Specific Gravity 1.011 (1.005-1.025); Urobilinogen NEGATIVE mg/dL (0-1); WBC 0-2 /HPF (0-5)
[2021-08-01] MEDS ORDERED: Sodium Chloride 0.9% 1000 ML 1,000 ML IV SCH (08:15)
--- NOTE | 2021-08-01 10:09 | XRAY ---
Indication: Lethargy. Status post fall. Multiple contiguous axial images obtained through the head without contrast. Comparison: None Normal appearing brain parenchyma, ventricles, and bony calvarium. Incidental hyperostosis frontalis interna. Visualized paranasal sinuses and mastoid air cells are clear. Impression: Normal CT head without contrast exam.
--- NOTE | 2021-08-01 10:09 | XRAY ---
Indication: Lethargy. Status post fall. Comparison: June 09, 2021. Portable chest better inflated and remains clear. Heart not enlarged again with CABG. Bony thorax intact again with osteopenia, degenerative changes, and old left 4-5 rib fractures. No new/acute findings.
[2021-08-01] MEDS ORDERED: Zofran 4 MG/2 ML VIAL IV PRN (11:34)
[2021-08-01 11:59] LABS: COVID AG -BINAX NOW RAPID TEST NEGATIVE (NEGATIVE)
[2021-08-01] MEDS ORDERED: PROTONIX 40 MG IV IV SCH (13:00)
[2021-08-01] MEDS ORDERED: MEDICATION INTERVENTION PO SCH (15:00)
[2021-08-01] MEDS ORDERED: xanAX 0.5 MG PO PRN (15:04)
[2021-08-01] MEDS: ENOXAPARIN SODIUM SQ SCH (15:11)
[2021-08-01] MEDS: PRISTIQ ER PO SCH (15:12)
[2021-08-01] MEDS: PLAVIX 75 MG Tablet PO SCH (15:12)
[2021-08-01] MEDS: Klor Con 10 MEQ PO SCH (15:12)
[2021-08-01] MEDS: Wellbutrin XL 150 MG PO SCH (15:13)
[2021-08-01] MEDS: Risperdal 1 MG PO SCH (15:13)
[2021-08-01] MEDS: Protonix 40MG Tablet PO SCH (15:13)
[2021-08-01] MEDS: Zestril 10 MG PO SCH (15:14)
[2021-08-01] MEDS: LASIX 20 MG PO SCH (15:15)
[2021-08-01] MEDS: ZOCOR 20MG PO SCH ×2 (21:20→23:12)
[2021-08-01] MEDS: ZYLOPRIM 100 MG PO SCH ×2 (21:21→23:12)
[2021-08-01] MEDS: MIRTAZAPINE PO SCH ×2 (21:21→23:12)
[2021-08-01] MEDS ORDERED: NON-FORMULARY ITEM (Rosuvastatin Calcium [Rosuvastatin Calcium] 20 MG Tablet) PO SCH (22:00)
[2021-08-01] MEDS ORDERED: NON-FORMULARY ITEM (Mirtazapine [Mirtazapine] 7.5 MG Tablet) PO SCH (22:00)
[2021-08-01] MEDS: Sodium Chloride 0.9% 1000 ML 1,000 ML IV SCH (23:41)
[2021-08-02 06:13] LABS: Absolute Neutrophil Ct (ANC) 2.76 (1.4-6.9); Basophil (Absolute #) 0.03 (0-0.4); Eosinophil % 2.1 % (0.00-5.0); Eosinophil (Absolute #) 0.11 (0-0.5); Hematocrit 31.1 % (35-47); Hemoglobin 9.9 gm/dl (12.0-16.0); Lymphocyte (Absolute #) 1.86 (1.0-4.6); Lymphocytes % 35.6 % (24.0-44.0); Mean Cell Volume 93.4 fl (78-100); Mean Corpuscular Hemoglobin 29.7 pg (26-32); Mean Corpuscular Hgb Concent. 31.8 g/dl (32-36); Mean Platelet Volume 10.5 fl (7.5-11.0); Monocyte (Absolute #) 0.46 (0.0-1.3); Monocytes % 8.8 % (0.0-12.0); Neutrophil % 52.9 % (36.0-66.0); Platelet Count 133 K/mm3 (150-450); Red Blood Count 3.33 M/mm3 (4.1-5.4); Red Cell Distribution Width 17.2 % (11.5-14.0); White Blood Count 5.2 K/mm3 (4.0-10.5)
[2021-08-02 06:33] LABS: ALBUMIN 3.2 g/dL (3.5-5.0); BILIRUBIN,TOTAL 0.4 mg/dL (0.2-1.3); Calcium 8.6 mg/dL (8.4-10.2); Creatinine 1 1.7 mg/dL (0.52-1.04); EST GLOMERULAR FILTRATION RATE 31.5 ML/MIN; Potassium 3.4 mmol/L (3.5-5.1); Total Protein 6.2 g/dL (6.3-8.2)
[2021-08-02] MEDS: Risperdal 1 MG PO SCH (09:09)
[2021-08-02] MEDS: Wellbutrin XL 150 MG PO SCH (09:09)
[2021-08-02] MEDS: ZYLOPRIM 100 MG PO SCH ×2 (09:09→21:22)
[2021-08-02] MEDS: ENOXAPARIN SODIUM SQ SCH (09:09)
[2021-08-02] MEDS: Zestril 10 MG PO SCH (09:09)
[2021-08-02] MEDS: PLAVIX 75 MG Tablet PO SCH (09:09)
[2021-08-02] MEDS: PRISTIQ ER PO SCH (09:09)
[2021-08-02] MEDS: LASIX 20 MG PO SCH ×2 (09:09→17:24)
[2021-08-02] MEDS: Sodium Chloride 0.9% 1000 ML 1,000 ML IV SCH ×2 (09:09→17:27)
[2021-08-02] MEDS: Protonix 40MG Tablet PO SCH (09:10)
[2021-08-02] MEDS: Klor Con 10 MEQ PO SCH (09:10)
[2021-08-02] MEDS ORDERED: NON-FORMULARY ITEM (Risperidone [Risperdal] 0.5 MG Tablet) PO SCH (10:00)
[2021-08-02] MEDS ORDERED: NON-FORMULARY ITEM (Omeprazole [Omeprazole] 40 MG Capsule.Dr) PO SCH (10:00)
[2021-08-02] MEDS ORDERED: ENOXAPARIN SODIUM SQ SCH (10:00)
[2021-08-02] MEDS ORDERED: NADOLOL 40 MG PO SCH (10:00)
--- NOTE | 2021-08-02 12:04 | PCM.HP ---
History of Present Illness - Chief Complaint Chief Complaint: HYPOTHERMIA, RHABDO History of Present Illness: is a 71 year old female who is a patient of Dr Belle Jane,previous patient of Dr Reid. Patient was brought to ER hypothermic found by a passer by outside her home on the ground in her night clothes/robe. Patient lives with her son but she states went outside she thinks maybe to check on her dog but fell. Her core temp was 91.8 and was treated with Bear hugger and warm IV fluids and admitted to [facility] for further obs and Tx. PMHx inculdes HTN,CAD(CABGx4),CHF,GERD,Gout,Insomnia,Psychotic episodes with delusions,halucinations and depression. MAR 2021 ptn was admitted to [facility] facility but on discharge son stated she still had hallucinations and paranoia. - Review of Systems Constitutional: Chills Eyes: No Symptoms Ears, Nose, & Throat: No Symptoms Respiratory: No Symptoms Cardiac: No Symptoms Abdominal/Gastrointestinal: No Symptoms Genitourinary Symptoms: No Symptoms Musculoskeletal: Fall (contused knee) Neurological: No Symptoms Psychological: Depression (states she becomes fearful of people in the neighborhood some days it is worse), Hallucinations Medications & Allergies Home Medications: Home Medication List Clopidogrel Bisulfate 75 mg [PLAVIX 75 MG Tablet] 75 mg PO DAILY 02/12/12 [History Confirmed 08/01/21] Desvenlafaxine Succinate [Pristiq] 50 mg PO DAILY 02/12/12 [History Confirmed 08/01/21] Omeprazole 20 mg PO DAILY 02/12/12 [History Confirmed 08/01/21] Potassium Chloride 10 Meq Tab* [Klor Con 10 MEQ] 20 meq PO DAILY 02/12/12 [History Confirmed 08/01/21] lisinopriL [Lisinopril] 10 mg PO DAILY 02/12/12 [History Confirmed 08/01/21] nadoloL [Nadolol] 40 mg PO DAILY 02/12/12 [History Confirmed 08/01/21] Allopurinol 100 mg [Zyloprim 100 mg] 100 mg PO BID 06/04/21 [History Confirmed 08/01/21] Bupropion HCl Xl 150 mg [Wellbutrin XL 150 MG] 150 mg PO DAILY 06/04/21 [History Confirmed 08/01/21] Rosuvastatin Calcium 20 mg PO HS 06/04/21 [History Confirmed 08/01/21] risperiDONE [Risperdal] 0.25 mg PO DAILY 06/04/21 [History Confirmed 08/01/21] Furosemide 20 mg [Lasix 20 mg] 20 mg PO BID 08/01/21 [History Confirmed 08/01/21] Mirtazapine 7.5 mg PO HS 08/01/21 [History Confirmed 08/01/21] Allergies/Adverse Reactions: Allergies Allergy/AdvReac Type Severity Reaction Status Date / Time Penicillins Allergy Swelling Verified 08/01/21 07:10 of Tongue and Lips - Past Medical History Past Medical History: Yes Neurological History: Migraines ENT History: No Pertinent History Cardiac History: Coronary Artery Disease, Hypertension Respiratory History: No Pertinent History Endocrine Medical History: No Pertinent History Musculoskelatal History: No Pertinent History GI Medical History: GERD History: Renal Disease Pyscho-Social History: No Pertinent History Reproductive Disorders: No Pertinent History Comment: UTI,RLS. pt poor historian - Female History Are you now?: No - Past Surgical History Past Surgical History: Yes Neuro Surgical History: No Pertinent History Cardiac History: CABG Respiratory Surgery: No Pertinent History GI Surgical History: No Pertinent History Genitourinary Surgical Hx: No Pertinent History Musculskeletal Surgical Hx: No Pertinent History Female Surgical History: No Pertinent History Other Surgical History: colonoscopy. pt poor historian. - Social History Smoking Status: Never smoker Exposure to second hand smoke: No Alcohol: None Drug Use: none - Physical Exam Vital Signs: Vital Signs - 24 hr Temp Pulse Resp BP Pulse Ox 08/02/21 08:00 97.5 F 66 21 122/60 96 08/02/21 04:04 97.9 F 64 18 86/59 97 08/01/21 23:38 97.8 F 69 16 83/46 97 08/01/21 19:10 97.1 F 76 18 87/45 98 08/01/21 16:00 97.7 F 76 20 90/52 96 08/01/21 12:52 100 08/01/21 12:35 99.3 F 83 16 139/59 97 08/01/21 12:05 74 99/52 97 08/01/21 11:59 98.1 F 74 20 94/52 98 General Appearance: no apparent distress, other (was aggitated and refused meds on admission per nursing but ate breakfast and took meds.) Neurologic Exam: alert (oriented to person and place), cooperative (pleasant mood but voices that she knows she has abnormal fears) Eye Exam: eyes nml inspection Ears, Nose, Throat Exam: normal ENT inspection Neck Exam: normal inspection Respiratory Exam: diminished breath sounds (bases) Cardiovascular Exam: regular rate/rhythm Gastrointestinal/Abdomen Exam: soft, normal bowel sounds (nontender) Back Exam: normal inspection Extremity Exam: other (contused knee,no pitting) Skin Exam: warm, dry, pale (dusky) Results - Labs Lab/Micro Results: Lab Results-Last 24 Hours 08/01/21 08/01/21 08/02/21 Range/Units 11:00 20:35 05:33 WBC (4.0-10.5) K/mm3 RBC (4.1-5.4) M/mm3 Hgb (12.0-16.0) gm/dl Hct (35-47) % MCV (78-100) fl MCH (26-32) pg MCHC (32-36) g/dl RDW (11.5-14.0) % Plt Count (150-450) K/mm3 MPV (7.5-11.0) fl Gran % (36.0-66.0) % Eos # (Auto) (0-0.5) Absolute Lymphs (auto) (1.0-4.6) Absolute Monos (auto) (0.0-1.3) Lymphocytes % (24.0-44.0) % Monocytes % (0.0-12.0) % Eosinophils % (0.00-5.0) % Basophils % (0.0-0.4) % Absolute Granulocytes (1.4-6.9) Basophils # (0-0.4) Sodium (137-145) mmol/L Potassium (3.5-5.1) mmol/L Chloride (98-107) mmol/L Carbon Dioxide (22-30) mmol/L Anion Gap (5-15) MEQ/L BUN (7-17) mg/dL Creatinine (0.52-1.04) mg/dL Estimated GFR ML/MIN Glucose (74-106) mg/dL Lactic Acid 1.3 (0.4-2.0) Calcium (8.4-10.2) mg/dL Total Bilirubin (0.2-1.3) mg/dL AST (14-36) U/L ALT (0-35) U/L Alkaline Phosphatase (38-126) U/L Creatine Kinase (30-135) U/L Troponin I 0.013 (0.000-0.034) ng/mL Serum Total Protein (6.3-8.2) g/dL Albumin (3.5-5.0) g/dL SARS-CoV-2 Ag (Rapid) NEGATIVE (NEGATIVE) 08/02/21 08/02/21 Range/Units 05:34 05:34 WBC 5.2 (4.0-10.5) K/mm3 RBC 3.33 L (4.1-5.4) M/mm3 Hgb 9.9 L (12.0-16.0) gm/dl Hct 31.1 L (35-47) % MCV 93.4 (78-100) fl MCH 29.7 (26-32) pg MCHC 31.8 L (32-36) g/dl RDW 17.2 H (11.5-14.0) % Plt Count 133 L D (150-450) K/mm3 MPV 10.5 (7.5-11.0) fl Gran % 52.9 (36.0-66.0) % Eos # (Auto) 0.11 (0-0.5) Absolute Lymphs (auto) 1.86 (1.0-4.6) Absolute Monos (auto) 0.46 (0.0-1.3) Lymphocytes % 35.6 (24.0-44.0) % Monocytes % 8.8 (0.0-12.0) % Eosinophils % 2.1 (0.00-5.0) % Basophils % 0.6 (0.0-0.4) % Absolute Granulocytes 2.76 (1.4-6.9) Basophils # 0.03 (0-0.4) Sodium 141 (137-145) mmol/L Potassium 3.4 L (3.5-5.1) mmol/L Chloride 115 H (98-107) mmol/L Carbon Dioxide 21 L (22-30) mmol/L Anion Gap 9.0 (5-15) MEQ/L BUN 16 (7-17) mg/dL Creatinine 1.70 H (0.52-1.04) mg/dL Estimated GFR 31.5 ML/MIN Glucose 84 (74-106) mg/dL Lactic Acid (0.4-2.0) Calcium 8.6 (8.4-10.2) mg/dL Total Bilirubin 0.40 (0.2-1.3) mg/dL AST 49 H (14-36) U/L ALT 18 (0-35) U/L Alkaline Phosphatase 130 H (38-126) U/L Creatine Kinase 473 H (30-135) U/L Troponin I (0.000-0.034) ng/mL Serum Total Protein 6.2 L (6.3-8.2) g/dL Albumin 3.2 L (3.5-5.0) g/dL SARS-CoV-2 Ag (Rapid) (NEGATIVE) Microbiology 08/01/21 07:30 Urine Culture - Preliminary Catherized NO GROWTH TO DATE - Radiology Impressions Radiology Exams & Impressions: Radiology Procedures Category Date Time Status CHEST 1 VIEW (PORTABLE) Stat Exams 08/01/21 10:02 Completed HEAD WITHOUT CONTRAST [CT] Stat Exams 08/01/21 09:43 Completed Assessment/Plan (1) Hypothermia due to cold environment Current Visit: Yes Status: Resolved Code(s): T68.XXXA - HYPOTHERMIA, INITIAL ENCOUNTER (2) Rhabdomyolysis Current Visit: Yes Status: Acute Assessment & Plan: mild,monitoring Code(s): M62.82 - RHABDOMYOLYSIS (3) Psychotic disorder with delusions Current Visit: Yes Status: Chronic Assessment & Plan: is on Respiradol Code(s): F29 - UNSP PSYCHOSIS NOT DUE TO A SUBSTANCE OR KNOWN PHYSIOL COND (4) CAD (coronary artery disease) Current Visit: Yes Status: Chronic Qualifiers: Coronary Disease-Associated Artery/Lesion type: bypass graft Code(s): I25.10 - ATHSCL HEART DISEASE OF [place] CORONARY ARTERY W/O ANG PCTRS (5) HTN (hypertension) Current Visit: Yes Status: Chronic Code(s): I10 - ESSENTIAL (PRIMARY) HYPERTENSION (6) Gout Current Visit: Yes Status: Chronic Code(s): M10.9 - GOUT, UNSPECIFIED
[2021-08-02] MEDS: ZOCOR 20MG PO SCH (21:22)
[2021-08-02] MEDS: MIRTAZAPINE PO SCH (21:22)
[2021-08-03] MEDS: Sodium Chloride 0.9% 1000 ML 1,000 ML IV SCH ×2 (05:20→15:05)
[2021-08-03 05:56] LABS: Absolute Neutrophil Ct (ANC) 3.27 (1.4-6.9); Basophil (Absolute #) 0.05 (0-0.4); Eosinophil % 1.9 % (0.00-5.0); Hemoglobin 10.4 gm/dl (12.0-16.0); Lymphocyte (Absolute #) 1.47 (1.0-4.6); Lymphocytes % 27.8 % (24.0-44.0); Mean Corpuscular Hemoglobin 29.3 pg (26-32); Mean Corpuscular Hgb Concent. 31.5 g/dl (32-36); Monocyte (Absolute #) 0.39 (0.0-1.3); Monocytes % 7.4 % (0.0-12.0); Platelet Count 131 K/mm3 (150-450); Red Blood Count 3.55 M/mm3 (4.1-5.4); Red Cell Distribution Width 17.4 % (11.5-14.0); White Blood Count 5.3 K/mm3 (4.0-10.5)
[2021-08-03 07:04] LABS: ALBUMIN 3.3 g/dL (3.5-5.0); ANION GAP 8.9 MEQ/L (5-15); BILIRUBIN,TOTAL 0.4 mg/dL (0.2-1.3); Calcium 8.5 mg/dL (8.4-10.2); Creatinine 1 1.46 mg/dL (0.52-1.04); EST GLOMERULAR FILTRATION RATE 37.5 ML/MIN; Potassium 3.4 mmol/L (3.5-5.1); TSH, 3RD Generation 1.3 mIU/L (0.47-4.68); Total Protein 6.1 g/dL (6.3-8.2)
[2021-08-03] MEDS: LASIX 20 MG PO SCH ×2 (09:06→16:42)
[2021-08-03] MEDS: PLAVIX 75 MG Tablet PO SCH (09:06)
[2021-08-03] MEDS: Zestril 10 MG PO SCH (09:07)
[2021-08-03] MEDS: Klor Con 10 MEQ PO SCH (09:07)
[2021-08-03] MEDS: Wellbutrin XL 150 MG PO SCH (09:07)
[2021-08-03] MEDS: ENOXAPARIN SODIUM SQ SCH (09:07)
[2021-08-03] MEDS: Risperdal 1 MG PO SCH (09:07)
[2021-08-03] MEDS: ZYLOPRIM 100 MG PO SCH ×2 (09:07→20:56)
[2021-08-03] MEDS: Protonix 40MG Tablet PO SCH (09:07)
[2021-08-03] MEDS: PRISTIQ ER PO SCH (09:07)
--- NOTE | 2021-08-03 12:32 | PCM.NOTE ---
Date and Time: 08/03/21 1229 Subjective Assessment: I spoke to patient's son,Madhu and he will be installing a door alarm but it has not come in yet. Patient is calm today and cooperative. Eating well. No c/o pain. She is aware she is in the hospital and that it is July but guesses the year in . She remembers being outside and being cold. Denies dysuria but UA today is nitrate positive and culture is pending. Will start Levaquin 250 daily note allergic to PCN and CKD. Objective Exam General Appearance: no apparent distress Neurologic Exam: alert (oriented to person and place), cooperative Skin Exam: normal color, warm, dry Respiratory Exam: normal breath sounds Cardiovascular Exam: regular rate/rhythm Gastrointestinal/Abdomen Exam: soft (nontender) OBJECTIVE DATA Vital Signs: Vital Signs - 24 hr Temp Pulse Resp BP Pulse Ox 08/03/21 11:53 97.5 F 71 18 113/55 97 08/03/21 07:36 97.7 F 69 16 136/63 96 08/03/21 05:00 98.2 F 74 16 128/61 99 08/03/21 00:00 98.1 F 68 20 112/52 95 08/02/21 20:00 98.2 F 68 18 96/54 98 08/02/21 16:00 97.1 F 81 19 119/59 94 L 08/02/21 12:00 96.9 F 62 19 89/44 97 Pain Assessment - Last Documented Pain Intensity 0 Intake and Output: Intake & Output 08/01/21 08/02/21 08/03/21 08/04/21 10:59 10:59 11:59 11:59 Intake Total Output Total Balance Weight Lab Results: Lab Results-Last 24 Hours 08/03/21 08/03/21 Range/Units 05:22 05:22 WBC 5.3 (4.0-10.5) K/mm3 RBC 3.55 L (4.1-5.4) M/mm3 Hgb 10.4 L (12.0-16.0) gm/dl Hct 33.0 L (35-47) % MCV 93.0 (78-100) fl MCH 29.3 (26-32) pg MCHC 31.5 L (32-36) g/dl RDW 17.4 H (11.5-14.0) % Plt Count 131 L (150-450) K/mm3 MPV 11.0 (7.5-11.0) fl Gran % 62.0 (36.0-66.0) % Eos # (Auto) 0.10 (0-0.5) Absolute Lymphs (auto) 1.47 (1.0-4.6) Absolute Monos (auto) 0.39 (0.0-1.3) Lymphocytes % 27.8 (24.0-44.0) % Monocytes % 7.4 (0.0-12.0) % Eosinophils % 1.9 (0.00-5.0) % Basophils % 0.9 (0.0-0.4) % Absolute Granulocytes 3.27 (1.4-6.9) Basophils # 0.05 (0-0.4) Sodium 143 (137-145) mmol/L Potassium 3.4 L (3.5-5.1) mmol/L Chloride 115 H (98-107) mmol/L Carbon Dioxide 23 (22-30) mmol/L Anion Gap 8.9 (5-15) MEQ/L BUN 15 (7-17) mg/dL Creatinine 1.46 H (0.52-1.04) mg/dL Estimated GFR 37.5 ML/MIN Glucose 90 (74-106) mg/dL Calcium 8.5 (8.4-10.2) mg/dL Magnesium 2.0 (1.6-2.3) mg/dL Total Bilirubin 0.40 (0.2-1.3) mg/dL AST 51 H (14-36) U/L ALT 19 (0-35) U/L Alkaline Phosphatase 123 (38-126) U/L Serum Total Protein 6.1 L (6.3-8.2) g/dL Albumin 3.3 L (3.5-5.0) g/dL Vitamin B12 679 (239-931) pg/mL TSH 3rd Generation 1.300 (0.47-4.68) mIU/L Assessment/Plan (1) Hypothermia due to cold environment Current Visit: Yes Status: Resolved Code(s): T68.XXXA - HYPOTHERMIA, INITIAL ENCOUNTER (2) Rhabdomyolysis Current Visit: Yes Status: Acute Assessment & Plan: CK still elevated-continue IV fluids Code(s): M62.82 - RHABDOMYOLYSIS (3) Psychotic disorder with delusions Current Visit: Yes Status: Chronic Code(s): F29 - UNSP PSYCHOSIS NOT DUE TO A SUBSTANCE OR KNOWN PHYSIOL COND (4) CAD (coronary artery disease) Current Visit: Yes Status: Chronic Qualifiers: Coronary Disease-Associated Artery/Lesion type: bypass graft Code(s): I25.10 - ATHSCL HEART DISEASE OF [place] CORONARY ARTERY W/O ANG PCTRS (5) HTN (hypertension) Current Visit: Yes Status: Chronic Code(s): I10 - ESSENTIAL (PRIMARY) HYPERTENSION (6) Gout Current Visit: Yes Status: Chronic Assessment & Plan: is on allopurinol no acute joint inflamation Code(s): M10.9 - GOUT, UNSPECIFIED (7) UTI (urinary tract infection) Current Visit: Yes Status: Acute Assessment & Plan: culture pending,Levaquin started Code(s): N39.0 - URINARY TRACT INFECTION, SITE NOT SPECIFIED
[2021-08-03 14:56] LABS: Appearance SLIGHTLY CLOUDY (CLEAR); Bacteria RARE /HPF (NEGATIVE); Bilirubin NEGATIVE (NEGATIVE); Blood MODERATE Ery/ul (0-5); Glucose NEGATIVE (NEGATIVE); Ketones NEGATIVE (NEGATIVE); Leukocyte Esterase MODERATE (NEGATIVE); Mucus SLIGHT /HPF (NEGATIVE); Nitrite POSITIVE (NEGATIVE); Protein,Urine Dip 30 (Negative); Specific Gravity 1.009 (1.005-1.025); Urobilinogen NEGATIVE mg/dL (0-1)
[2021-08-03] MEDS: Levofloxacin 250MG Tablet PO SCH (20:54)
[2021-08-03] MEDS: MIRTAZAPINE PO SCH (20:55)
[2021-08-03] MEDS: ZOCOR 20MG PO SCH (20:56)
[2021-08-04] MEDS ORDERED: TYLENOL 325 MG PO PRN (00:43)
[2021-08-04 05:09] LABS: Absolute Neutrophil Ct (ANC) 2.57 (1.4-6.9); Basophil (Absolute #) 0.04 (0-0.4); Eosinophil (Absolute #) 0.14 (0-0.5); Hematocrit 29.6 % (35-47); Hemoglobin 9.4 gm/dl (12.0-16.0); Lymphocyte (Absolute #) 1.43 (1.0-4.6); Lymphocytes % 30.8 % (24.0-44.0); Mean Cell Volume 93.4 fl (78-100); Mean Corpuscular Hemoglobin 29.7 pg (26-32); Mean Corpuscular Hgb Concent. 31.8 g/dl (32-36); Mean Platelet Volume 10.3 fl (7.5-11.0); Monocyte (Absolute #) 0.46 (0.0-1.3); Monocytes % 9.9 % (0.0-12.0); Neutrophil % 55.4 % (36.0-66.0); Platelet Count 108 K/mm3 (150-450); Red Blood Count 3.17 M/mm3 (4.1-5.4); Red Cell Distribution Width 17.3 % (11.5-14.0); White Blood Count 4.6 K/mm3 (4.0-10.5)
[2021-08-04 05:29] LABS: ALBUMIN 3.1 g/dL (3.5-5.0); ANION GAP 8.5 MEQ/L (5-15); BILIRUBIN,TOTAL 0.5 mg/dL (0.2-1.3); Calcium 8.1 mg/dL (8.4-10.2); Creatinine 1 1.17 mg/dL (0.52-1.04); EST GLOMERULAR FILTRATION RATE 48.5 ML/MIN; Potassium 3.6 mmol/L (3.5-5.1); Total Protein 6.3 g/dL (6.3-8.2)
[2021-08-04 09:01] VITALS: O2SAT 100
[2021-08-04] MEDS: ENOXAPARIN SODIUM SQ SCH (09:16)
[2021-08-04] MEDS: Zestril 10 MG PO SCH (09:16)
[2021-08-04] MEDS: PRISTIQ ER PO SCH (09:16)
[2021-08-04] MEDS: Levofloxacin 250MG Tablet PO SCH (09:17)
[2021-08-04] MEDS: Risperdal 1 MG PO SCH (09:17)
[2021-08-04] MEDS: ZYLOPRIM 100 MG PO SCH (09:17)
[2021-08-04] MEDS: PLAVIX 75 MG Tablet PO SCH (09:17)
[2021-08-04] MEDS: LASIX 20 MG PO SCH (09:18)
[2021-08-04] MEDS: Klor Con 10 MEQ PO SCH (09:18)
[2021-08-04] MEDS: Protonix 40MG Tablet PO SCH (09:19)
[2021-08-04] MEDS: Wellbutrin XL 150 MG PO SCH (09:28)
[2021-08-04 12:24] VITALS: BP 119/55; PULSE 65
--- NOTE | 2021-08-04 12:24 | PCM.DCORD ---
- Discharge Disposition: HOME HEALTH SERVICE Condition: Stable Prescriptions: New Levofloxacin [Levofloxacin 250MG Tablet] 250 mg PO DAILY #5 tab No Action Clopidogrel Bisulfate 75 mg [PLAVIX 75 MG Tablet] 75 mg PO DAILY Potassium Chloride 10 Meq Tab* [Klor Con 10 MEQ] 20 meq PO DAILY Desvenlafaxine Succinate [Pristiq] 50 mg PO DAILY Omeprazole 20 mg PO DAILY lisinopriL [Lisinopril] 10 mg PO DAILY nadoloL [Nadolol] 40 mg PO DAILY risperiDONE [Risperdal] 0.25 mg PO DAILY Bupropion HCl Xl 150 mg [Wellbutrin XL 150 MG] 150 mg PO DAILY Allopurinol 100 mg [Zyloprim 100 mg] 100 mg PO BID Rosuvastatin Calcium 20 mg PO HS Mirtazapine 7.5 mg PO HS Furosemide 20 mg [Lasix 20 mg] 20 mg PO BID Instructions: Rhabdomyolysis (DC) Additional Instructions: Keep appt with Neurologist. Hold Furosemide for 3 days,restart on Wednesday08/08/[address] [facility] for urine infection. Follow up with: JOEL JACINTO MD [Primary Care Provider] - Forms: Discharge Instructions
[2021-08-04] MEDS ORDERED: GLYCERIN ADULT SUPPOSITORY RC ONE (13:00)
== END 2021-08-04 14:58 | disposition home health service (06) ==
LOC: ED 06:47 → MED SURG 12:15
PROVIDERS: ADMIT Family Medicine; ATTEND Family Medicine
DX: T68.XXXA Hypothermia, initial encounter (principal); M62.82 Rhabdomyolysis; F29 Unspecified psychosis not due to a substance or known physiological condition; I50.9 Heart failure, unspecified; I11.0 Hypertensive heart disease with heart failure; I25.10 Atherosclerotic heart disease of native coronary artery without angina pectoris; M10.9 Gout, unspecified; N39.0 Urinary tract infection, site not specified; Z79.899 Other long term (current) drug therapy; Z20.828 Contact with and (suspected) exposure to other viral communicable diseases; X31.XXXA Exposure to excessive natural cold, initial encounter
CPT/HCPCS: 36000; 36415; 51702; 70450; 71045; 80053; 81001; 82533; 82550; 82607; 83605; 83735; 84443; 84484; 85025; 85610; 85730; 87040; 87077; 87086; 87186; 93005; 96360; 96361; 99000; 99285; 99291; G0378; G0480; 80307; J1650; A9270-GY

== ENCOUNTER 2021-11-08 05:16 | Emergency (ER) | payer MEDICARE ==
[2021-11-08] MEDS ORDERED: TYLENOL EXTRA STRENGTH 500 MG PO ONE (06:00)
[2021-11-08] MEDS ORDERED: TYLENOL EXTRA STRENGTH 500 MG ONE (06:03)
[2021-11-08 06:18] VITALS: BP 112/72; PULSE 57
[2021-11-08 06:20] VITALS: O2SAT 100
--- NOTE | 2021-11-08 06:20 | ERPHSYRPT ---
- History of Present Illness Time Seen by Provider: 11/08/21 06:13 Source: patient Exam Limitations: no limitations Patient Subjective Stated Complaint: pt states she walking outside and looking for her brother, then realized that she was alone, pt states she lost her trudy nce several times while walking outside and so began to crawl. pt states her knees hurt now and rates pain as 5/10 in both knees. Triage Nursing Assessment: pt is poor historian with psych history. states she has pain in her knees that she rates 5/10. no obvious deformities. Physician History: 71-year-old female with a history of bipolar, hypertension, hyperlipidemia, GERD presented in the ER via EMS with bilateral knee pain. Patient reports she recently moved here, lives with her brother was looking for him, then realized that she is lost. Patient reports she lost balance and landed on both knees but she was able to get up and walk although they do hurt. Does have problem with knees in the past as well. No injury anywhere else. Method of Injury: fell Occurred: just prior to arrival Quality: sharpness Severity of Pain-Max: moderate Severity of Pain-Current: moderate Lower Extremities Pain: knee: bilateral Modifying Factors: Improves With: immobilization. Worsens With: movement Associated Symptoms: No unable to bear weight, No snapping sensation, No popping sensation Allergies/Adverse Reactions: Penicillins Allergy (Verified 11/08/21 05:32) Swelling of Tongue and Lips Home Medications: Clopidogrel Bisulfate [PLAVIX Tablet] 75 mg PO DAILY 02/12/12 [History] Desvenlafaxine Succinate [Pristiq] 50 mg PO DAILY 02/12/12 [History] Omeprazole 20 mg PO DAILY 02/12/12 [History] Potassium Chloride Tab* [Klor Con] 20 meq PO DAILY 02/12/12 [History] lisinopriL [Lisinopril] 10 mg PO DAILY 02/12/12 [History] nadoloL [Nadolol] 40 mg PO DAILY 02/12/12 [History] Allopurinol 100 mg [Zyloprim 100 mg] 100 mg PO BID 06/04/21 [History] Bupropion HCl Xl 150 mg [Wellbutrin XL 150 MG] 150 mg PO DAILY 06/04/21 [History] Rosuvastatin Calcium 20 mg PO HS 06/04/21 [History] risperiDONE [Risperdal] 0.25 mg PO DAILY 06/04/21 [History] Furosemide 20 mg [Lasix 20 mg] 20 mg PO BID 08/01/21 [History] Mirtazapine 7.5 mg PO HS 08/01/21 [History] Hx Tetanus, Diphtheria Vaccination/Date Given: No Hx Influenza Vaccination/Date Given: No Hx Pneumococcal Vaccination/Date Given: No Travel Risk - International Travel Have you traveled outside of the country in past 3 weeks: No - Coronavirus Screening Are you exhibiting any of the following symptoms?: No Close contact with a COVID-19 positive Pt in past 14-21 Days: No - Vaccine Status Have you recieved a Covid-19 vaccination: Yes 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: [employer] - Vaccination Dates Date of 2cond Vaccination (if applicable): unknown - Review of Systems Constitutional: No Symptoms Eyes: No Symptoms Ears, Nose, & Throat: No Symptoms Respiratory: No Symptoms Cardiac: No Symptoms Abdominal/Gastrointestinal: No Symptoms Genitourinary Symptoms: No Symptoms Musculoskeletal: Arthralgias, Injury, Joint Pain Skin: No Symptoms Neurological: No Symptoms Psychological: No Hallucinations, No Memory Loss, No Mood Changes Endocrine: No Symptoms Hematologic/Lymphatic: No Symptoms - Past Medical History Pertinent Past Medical History: Yes Neurological History: Migraines ENT History: No Pertinent History Cardiac History: Coronary Artery Disease, Hypertension Respiratory History: No Pertinent History Endocrine Medical History: No Pertinent History Musculoskeletal History: No Pertinent History GI Medical History: GERD History: Renal Disease Psycho-Social History: No Pertinent History Female Reproductive Disorders: No Pertinent History Other Medical History: UTI,RLS. pt poor historian - Past Surgical History Past Surgical History: Yes Neuro Surgical History: No Pertinent History Cardiac: CABG Respiratory: No Pertinent History Gastrointestinal: No Pertinent History Genitourinary: No Pertinent History Musculoskeletal: No Pertinent History Female Surgical History: No Pertinent History Other Surgical History: colonoscopy. pt poor historian. - Social History Smoking Status: Never smoker Exposure to second hand smoke: No Drug Use: none Patient Lives Alone: No (son lives with her) - Nursing Vital Signs Nursing Vital Signs: Initial Vital Signs Temperature 98.2 F 11/08/21 05:17 Pulse Rate 62 11/08/21 05:17 Respiratory Rate 18 11/08/21 05:17 Blood Pressure 134/57 11/08/21 05:17 O2 Sat by Pulse Oximetry 100 11/08/21 05:17 Pain Scale Pain Intensity 5 - Physical Exam General Appearance: no apparent distress Eyes, Ears, Nose, Throat Exam: TMs normal Neck Exam: normal inspection, full range of motion Cardiovascular/Respiratory Exam: normal breath sounds, regular rate/rhythm Gastrointestinal/Abdominal Exam: non-tender, soft, no organomegaly Back Exam: normal inspection Hips Exam: bilateral: non-tender, normal inspection, normal range of motion, no evidence of injury Legs Exam: bilateral leg: non-tender, normal inspection, normal range of motion, no evidence of injury Knees Exam: right knee: non-tender, left knee: bone tenderness, pain, soft tissue tenderness, bilateral knee: normal inspection, normal range of motion, no evidence of injury Ankle Exam: bilateral ankle: non-tender, normal inspection, normal range of motion, no evidence of injury Neuro/Tendon Exam: normal sensation, normal motor functions, normal tendon functions, responds to pain Mental Status Exam: alert, oriented x 3, cooperative Skin Exam: normal color SpO2 Interpretation: normal SpO2: 100 O2 Delivery: Room Air Ordered Tests: Active Orders 24 hr Category Date Time Status KNEE (3 VIEWS) Stat Exams 11/08/21 05:39 Taken KNEE (3 VIEWS) Stat Exams 11/08/21 05:39 Taken Medication Summary Discontinued Medications Generic Name Dose Route Start Last Admin Trade Name Kyle PRN Reason Stop Dose Admin Acetaminophen 1,000 mg 11/08/21 06:00 11/08/21 06:03 Acetaminophen 500 Mg Tablet PO 11/08/21 06:01 1,000 mg STAT ONE Administration Acetaminophen Confirm 11/08/21 06:03 Acetaminophen 500 Mg Tablet Administered 11/08/21 06:04 Dose 1,000 mg .ROUTE .STK-MED ONE - Progress Progress: improved, pain not gone completely Progress Note: 11/08/21 06:19 X-rays negative for any acute fracture dislocation but narrowing of joint space, arthritic findings. Does not want anything stronger but Tylenol. Bilateral Lars wrap applied. Outpatient follow-up. 11/08/21 06:20 Counseled pt/family regarding: diagnosis, need for follow-up, rad results - Departure Departure Disposition: Home Clinical Impression: Knee pain, bilateral, Fall Condition: Stable Critical Care Time: No Referrals: JOEL JACINTO MD [Primary Care Provider] - Follow up/PCP as directed (In 2 days for reevaluation) ORTHO - JENNY BRONSON NP [NON-STAFF PHY W/O PRIVILEGES] - Follow up/PCP as directed (In 2-3 days for reevaluation) Instructions: Knee Pain Additional Instructions: Take Tylenol as needed. Avoid exertional activities. Follow-up with primary care/orthopedic surgery for reevaluation. Return to ER for any worsening.
--- NOTE | 2021-11-08 07:47 | XRAY ---
Indication: Pain following fall. Comparison: None 3 view right knee demonstrates osteopenia, minimal/mild tricompartmental degenerative changes, mild scattered vascular calcifications, and medial thigh vascular clips. No other bony, articular, or soft tissue abnormalities.
--- NOTE | 2021-11-08 07:49 | XRAY ---
Indication: Pain following fall. Comparison: None 3 view left knee demonstrates osteopenia, minimal/mild tricompartmental degenerative changes, mild scattered vascular calcifications, and medial leg vascular clips. No other bony, articular, or soft tissue abnormalities.
== END 2021-11-08 06:20 | disposition home or self-care (01) ==
LOC: ED 05:16
DX: M25.561 Pain in right knee (principal); M25.562 Pain in left knee; W18.30XA Fall on same level, unspecified, initial encounter; Y93.01 Activity, walking, marching and hiking; I10 Essential (primary) hypertension; E78.5 Hyperlipidemia, unspecified; Z79.02 Long term (current) use of antithrombotics/antiplatelets; Z79.899 Other long term (current) drug therapy
CPT/HCPCS: 73562; 99283; A9270-GY